=== PATIENT | female | born 1960 | race Hispanic/Latino ===

== ENCOUNTER 2020-12-25 14:50 | Inpatient (IN) | payer OTHER ==
--- OUTSIDE RECORDS SUMMARY | 2020-12-25 14:53 | XMS REPORT | Continuity of Care Document ---
:1960 Author Organization [facility] t Address [address] [place] [address] [address] [place] [address] Care Team Providers Name Role Phone Jamie Amezcua DO Attending Clinician Oneal ANGEL Attending Clinician Problems This patient has no known problems. Allergies, Adverse Reactions, Alerts This patient has no known allergies or adverse reactions. Medications This patient has no known medications. Procedures This patient has no known procedures. Encounters Start End Encounter Admission Attending Care Care Encounter Source Date/Time Date/Time Type Type Clinicians Facility Department ID 2020-11-07 2020-11-07 Patient LATASHA Amezcua [id number] 00:00:00 00:00:00 Outreach [facility] [id number] Jamie [facility] [id number] RONDA [id number] 2020-08-01 2020-08-01 Office LATASHA No [id number] 09:04:12 09:46:11 Visit Wilfrid Ewing [id number] Delia [id number] Magi [id number] [address] Building Results This patient has no known results.
[2020-12-25 18:23] LABS: Urine Blood Negative (Negative); Urine Glucose Negative (Negative); Urine Protein Negative (Negative); Urine Specific Gravity 1.025 (1.005-1.030)
[2020-12-25] MEDS ORDERED: PIPER/TAZO/NS 3.375gm 3.375 GM/100 ML BAG ONE ×2 (18:32→18:36)
[2020-12-25] MEDS ORDERED: MORPHINE 2 MG/ML SYR ONE (18:32)
[2020-12-25] MEDS ORDERED: NA CHLORIDE 0.9% 1,000 ML ONE ×2 (18:32→19:31)
[2020-12-25] MEDS ORDERED: ONDANSETRON 4 MG/2 ML VIAL ONE (18:32)
[2020-12-25] MEDS ORDERED: ACETAMINOPHEN 500 MG TAB ONE (18:32)
--- NOTE | 2020-12-25 19:07 | EDPHYS ---
Physician Documentation [facility] Name: Elli Becker Age: 60 yrs Sex: Female : 1960 Arrival Date: 12/25/2020 Time: 14:51 Bed 8 Private MD: GIUSEPPE Physician Spenser Murillo HPI: 12/25 18:10 This 60 yrs old Female presents to ER via Ambulatory with complaints of bernice Abdominal Pain, High Blood Pressure, Fever. 18:10 The patient has elevated blood pressure and discovered this at home. Onset: The bernice symptoms/episode began/occurred 3 day(s) ago. Modifying factors: The symptoms are aggravated by activity, movement, The symptoms are alleviated by remaining still. Associated signs and symptoms: Pertinent positives: nausea, vomiting, weakness. Severity of symptoms: At its worst the blood pressure was mild, in the emergency department the blood pressure is improved. The patient has experienced similar episodes in the past, a few times. Historical: - Allergies: 15:07 No Known Allergies; ll1 - Home Meds: 18:07 metformin 500 mg Oral tab [Active]; Synthroid 50 mcg Oral tab 1 tab once daily [Active];ld1 - PMHx: 15:07 Diverticulitis; polyps; Diabetes - NIDDM; ll1 15:08 Hypothyroidism; High Cholesterol; ll1 - PSHx: 15:07 Hysterectomy; lump breast removed; Appendectomy; Knee surgery; Cholecystectomy; ll1 - Immunization history:: Client reports receiving the 2nd dose of the Covid vaccine, Flu vaccine is not up to date. - Social history:: Smoking status: Patient denies any tobacco usage or history of. ROS: 18:11 Eyes: Negative for injury, pain, redness, and discharge, ENT: Negative for injury, bernice pain, and discharge, Neck: Negative for injury, pain, and swelling, Cardiovascular: Negative for chest pain, palpitations, and edema, Respiratory: Negative for shortness of breath, cough, wheezing, and pleuritic chest pain, Back: Negative for injury and pain, : Negative for injury, bleeding, discharge, and swelling, MS/Extremity: Negative for injury and deformity, Skin: Negative for injury, rash, and discoloration, Neuro: Negative for headache, weakness, numbness, tingling, and seizure, Psych: Negative for depression, anxiety, suicide ideation, homicidal ideation, and hallucinations, Allergy/Immunology: Negative for hives, rash, and allergies, Endocrine: Negative for neck swelling, polydipsia, polyuria, polyphagia, and marked weight changes, Hematologic/Lymphatic: Negative for swollen nodes, abnormal bleeding, and unusual bruising. 18:11 Constitutional: Positive for fever. 18:11 Abdomen/GI: Positive for abdominal pain, nausea, vomiting, of the suprapubic area, right lower quadrant and left lower quadrant. Exam: 18:11 Constitutional: This is a well developed, well nourished patient who is awake, alert, bernice and in no acute distress. Head/Face: Normocephalic, atraumatic. Eyes: Pupils equal round and reactive to light, extra-ocular motions intact. Lids and lashes normal. Conjunctiva and sclera are non-icteric and not injected. Cornea within normal limits. Periorbital areas with no swelling, redness, or edema. ENT: Nares patent. No nasal discharge, no septal abnormalities noted. Tympanic membranes are normal and external auditory canals are clear. Oropharynx with no redness, swelling, or masses, exudates, or evidence of obstruction, uvula midline. Mucous membranes moist. Neck: Trachea midline, no thyromegaly or masses palpated, and no cervical lymphadenopathy. Supple, full range of motion without nuchal rigidity, or vertebral point tenderness. No Meningismus. Chest/axilla: Normal chest wall appearance and motion. Nontender with no deformity. No lesions are appreciated. Cardiovascular: Regular rate and rhythm with a normal S1 and S2. No gallops, murmurs, or rubs. Normal PMI, no JVD. No pulse deficits. Respiratory: Lungs have equal breath sounds bilaterally, clear to auscultation and percussion. No rales, rhonchi or wheezes noted. No increased work of breathing, no retractions or nasal flaring. Back: No spinal tenderness. No costovertebral tenderness. Full range of motion. Female : Normal external genitalia. Skin: Warm, dry with normal turgor. Normal color with no rashes, no lesions, and no evidence of cellulitis. MS/ Extremity: Pulses equal, no cyanosis. Neurovascular intact. Full, normal range of motion. Neuro: Awake and alert, GCS 15, oriented to person, place, time, and situation. Cranial nerves II-XII grossly intact. Motor strength 5/5 in all extremities. Sensory grossly intact. Cerebellar exam normal. Normal gait. Psych: Awake, alert, with orientation to person, place and time. Behavior, mood, and affect are within normal limits. 18:11 Abdomen/GI: Inspection: distension, Bowel sounds: diminished, Palpation: mild abdominal tenderness, moderate abdominal tenderness, in the suprapubic area, right lower quadrant and left lower quadrant, Liver: no appreciated palpable abnormalities, Hernia: not appreciated. 18:43 ECG was reviewed by the Attending Physician. bernice Vital Signs: 15:02 BP 125 / 75; Pulse 112; Resp 18; Temp 100.6; Pulse Ox 98% ; Weight 93.44 kg; Height 5 ll1 ft. 0 in. (152.40 cm); Pain 10/10; 18:07 BP 128 / 73; Pulse 99; Resp 23; Temp 99.8(O); Pulse Ox 98% on R/A; Pain 10/10; ld1 19:05 BP 120 / 73; Pulse 97; Resp 18; Pulse Ox 96% ; ld1 21:28 BP 96 / 53; Pulse 78; Resp 18; Pulse Ox 97% ; ea 23:29 BP 113 / 56; Pulse 71; Resp 16; Temp 98.7; Pulse Ox 98% ; ea 12/26 00:36 BP 103 / 63; Pulse 75; Resp 18; Pulse Ox 99% ; ea 12/25 15:02 Body Mass Index 40.23 (93.44 kg, 152.40 cm) ll1 MDM: 12/25 17:53 Patient medically screened. bernice 18:13 Differential diagnosis: viral Infection, bacterial infection, pneumonia hypertensive bernice crisis, appendicitis, bowel obstruction, cholecystitis, Cholelithiasis, diverticulitis, gastritis. Data reviewed: vital signs, nurses notes, lab test result(s), EKG, radiologic studies, CT scan, plain films. Data interpreted: senior php developer: not applicable for this patient encounter. rate is 99 beats/min, rhythm is regular, Pulse oximetry: on room air is 98 %. Test interpretation: by ED physician or midlevel provider: ECG, plain radiologic studies. Counseling: I had a detailed discussion with the patient and/or guardian regarding: the historical points, exam findings, and any diagnostic results supporting the discharge/admit diagnosis, lab results, radiology results, the need for further work-up and treatment in the hospital. 12/25 18:10 Order name: Basic Metabolic Panel [facility] 12/25 18:10 Order name: CBC with Diff [facility] 12/25 18:10 Order name: LFT's 12/25 18:10 Order name: Magnesium [facility] 12/25 18:10 Order name: NT PRO-BNP 12/25 18:10 Order name: PT-INR [facility] 12/25 18:10 Order name: Troponin (emerg Dept Use Only); Complete Time: 19:33 [facility] 12/25 18:10 Order name: Lipase; Complete Time: 19:33 [facility] 12/25 18:10 Order name: Urine Culture [facility] 12/25 18:10 Order name: Basic Metabolic Panel; Complete Time: 19:33 [facility] 12/25 18:10 Order name: CBC with Automated Diff; Complete Time: 19:25 [facility] 12/25 18:11 Order name: Liver (Hepatic) Function; Complete Time: 19:33 [facility] 12/25 18:11 Order name: Magnesium; Complete Time: 19:33 [facility] 12/25 18:10 Order name: XRAY Chest (1 view); Complete Time: 20:34 [facility] 12/25 18:10 Order name: EKG; Complete Time: 18:11 [facility] 12/25 18:10 Order name: CT Abd/Pelvis - IV Contrast Only; Complete Time: 20:34 [facility] 12/25 18:11 Order name: NT PRO-BNP; Complete Time: 19:33 [facility] 12/25 18:11 Order name: Protime (+INR); Complete Time: 19:33 [facility] 12/25 18:23 Order name: Urine Dipstick-Ancillary; Complete Time: 19:03 [facility] 12/25 19:49 Order name: SARS-COV-2 RT PCR; Complete Time: 19:51 [facility] 12/25 18:10 Order name: Cardiac monitoring; Complete Time: 18:11 12/25 18:10 Order name: EKG - Nurse/Tech; Complete Time: 18:38 12/25 18:10 Order name: IV Saline Lock; Complete Time: 19:07 [facility] 12/25 18:10 Order name: Labs collected and sent; Complete Time: 19:07 [facility] 12/25 18:10 Order name: O2 Per Protocol; Complete Time: 18:25 [facility] 12/25 18:10 Order name: O2 Sat Monitoring; Complete Time: 18: [facility] 12/25 18:10 Order name: Urine Dipstick-Ancillary (obtain specimen); Complete Time: 18: bernice EC:43 Rate is 101 beats/min. Rhythm is regular. QRS [place] is Normal. [place] interval is normal. bernice QRS interval is normal. QT interval is normal. No Q waves. T waves are Normal. No ST changes noted. Clinical impression: NSR w/ Non-specific ST/T Changes and No evidence of ischemia. Interpreted by me. Reviewed by me. Administered Medications: 18:38 Drug: Tylenol 1000 mg Route: PO; ld1 19:07 Follow up: Response: No adverse reaction ld1 19:06 Drug: Zosyn (piperacillin-tazobactam) 3.375 grams Route: IVPB; Infused Over: 60 mins; ld1 Site: left antecubital; 20:10 Follow up: IV Status: Completed infusion ea 19:06 Drug: morphine 2 mg Route: IVP; Site: left forearm; ld1 19:25 Follow up: Response: No adverse reaction ea 19:06 Drug: Zofran (Ondansetron) 4 mg Route: IVP; Site: left forearm; ld1 19:25 Follow up: Response: No adverse reaction ea 19:06 Drug: NS 0.9% 1000 ml Route: IV; Rate: 1 bolus; Site: left forearm; ld1 22:00 Follow up: Response: No adverse reaction; IV Status: Completed infusion; IV Intake: ea 1000ml 19:16 Drug: NS 0.9% 1000 ml Route: IV; Rate: 125 ml/hr; Site: left antecubital; ea 23:28 Follow up: Response: No adverse reaction; IV Status: Completed infusion ea 19:50 Not Given (Duplicate Order): LanTUS (insulin glargine) 35 units Sub-Q once bernice 20:45 Drug: fentaNYL (PF) 25 mcg Route: IVP; Site: right antecubital; ea 22:00 Follow up: Response: No adverse reaction; Pain is decreased ea 23:28 Drug: fentaNYL (PF) 25 mcg Route: IVP; Site: left antecubital; ea Disposition: 12/25/20 19:07 Hospitalization ordered by Kane Ortiz for Inpatient Admission. Preliminary diagnosis are Abdominal tenderness, Fever, unspecified, Diverticular disease of intestine, Type 2 diabetes mellitus. - Bed requested for Telemetry/MedSurg (Inpatient). - Status is Inpatient Admission. rv - Condition is Stable. - Problem is new. - Symptoms have improved. Signatures: Dispatcher [employer] [facility] Vita Real RN RN dw Anderson, Corey, MD MD cha Attema, Dexter, STUDENT TRUCK DRIVER-C STUDENT TRUCK DRIVER-Cla1 Spenser Chu PA PA cp Neetu Booker RN RN ea Vicente, Ronaldo, RN RN rv Lewis, Lynsay, RN RN ll1 Narcisa Fortune RN RN ld1 Corrections: (The following items were deleted from the chart) 19:06 18:11 CORONAVIRUS+MR.LAB.BRZ ordered. [facility] 21:20 19:07 Hospitalization Ordered by Gagandeep Khan DO for Inpatient Admission. Preliminary cp diagnosis is Abdominal tenderness; Fever, unspecified; Diverticular disease of intestine; Type 2 diabetes mellitus. Bed requested for Telemetry/MedSurg (Inpatient). Status is Inpatient Admission. Condition is Stable. Problem is new. Symptoms have improved. [facility] 21:37 21:20 12/25/2020 19:07 Hospitalization Ordered by Kane Ortiz MD for Inpatient dw Admission. Preliminary diagnosis is Abdominal tenderness; Fever, unspecified; Diverticular disease of intestine; Type 2 diabetes mellitus. Bed requested for Telemetry/MedSurg (Inpatient). Status is Inpatient Admission. Condition is Stable. Problem is new. Symptoms have improved. cp 23:22 21:37 12/25/2020 19:07 Hospitalization Ordered by Kane Ortiz MD for Inpatient dw Admission. Preliminary diagnosis is Abdominal tenderness; Fever, unspecified; Diverticular disease of intestine; Type 2 diabetes mellitus. Bed requested for [facility] ER HOLD. Status is Inpatient Admission. Condition is Stable. Problem is new. Symptoms have improved. dw 12/26 00:35 12/25 23:22 12/25/2020 19:07 Hospitalization Ordered by Kane Ortiz MD for Inpatient rv Admission. Preliminary diagnosis is Abdominal tenderness; Fever, unspecified; Diverticular disease of intestine; Type 2 diabetes mellitus. Bed requested for Telemetry/MedSurg (Inpatient). Status is Inpatient Admission. Condition is Stable. Problem is new. Symptoms have improved. dw
--- NOTE | 2020-12-25 19:07 | ER ---
Nurse's Notes [facility] Name: Elli Becker Age: 60 yrs Sex: Female : 1960 Arrival Date: 12/25/2020 Time: 14:51 Bed 8 Private MD: Diagnosis: Abdominal tenderness;Fever, unspecified;Diverticular disease of intestine;Type 2 diabetes mellitus Presentation: 12/25 15:02 Chief complaint: Patient states: Sever abd pain with N/V/D since Friday, got worse over ll1 time. Went to see Dr. Yu, sent here for eval. BP and HR was elevated. Coronavirus screen: Client denies travel out of the [place] in the last 14 days. chills, diarrhea, fatigue, headache, nausea, shaking with chills, vomiting. Client presents with at least one sign or symptom that may indicate coronavirus-19. Standard/surgical mask placed on the client. Ebola Screen: Patient denies travel to an Ebola-affected area in the 21 days before illness onset. Initial Sepsis Screen: Does the patient meet any 2 criteria? No. Patient's initial sepsis screen is negative. Does the patient have a suspected source of infection? Yes: Acute abdominal pain. Risk Assessment: Do you want to hurt yourself or someone else? Patient reports no desire to harm self or others. Onset of symptoms was December 22, 2020. 15:02 Method Of Arrival: Ambulatory ll1 15:02 Acuity: BRIGIDO 3 ll1 Historical: - Allergies: 15:07 No Known Allergies; ll1 - Home Meds: 18:07 metformin 500 mg Oral tab [Active]; Synthroid 50 mcg Oral tab 1 tab once daily [Active];ld1 - PMHx: 15:07 Diverticulitis; polyps; Diabetes - NIDDM; ll1 15:08 Hypothyroidism; High Cholesterol; ll1 - PSHx: 15:07 Hysterectomy; lump breast removed; Appendectomy; Knee surgery; Cholecystectomy; ll1 - Immunization history:: Client reports receiving the 2nd dose of the Covid vaccine, Flu vaccine is not up to date. - Social history:: Smoking status: Patient denies any tobacco usage or history of. Screenin:07 Abuse screen: Denies threats or abuse. Denies injuries from another. Nutritional ld1 screening: No deficits noted. Tuberculosis screening: No symptoms or risk factors identified. Fall Risk IV access (20 points). Assessment: 18:04 General: Appears in no apparent distress. uncomfortable, Behavior is calm, cooperative, ld1 appropriate for age. Pain: Complains of pain in right lower quadrant and left lower quadrant Pain currently is 10 out of 10 on a pain scale. Quality of pain is described as burning, sharp, throbbing, Pain began 2-3 days ago. Is continuous, Aggravated by increased activity, repositioning. Neuro: Level of Consciousness is awake, alert, obeys commands, Oriented to person, place, time, situation, Appropriate for age. Cardiovascular: Capillary refill < 3 seconds Patient's skin is warm and dry. Rhythm is regular. Respiratory: Airway is patent Respiratory effort is even, unlabored, Respiratory pattern is regular, symmetrical. GI: Bowel sounds present X 4 quads. Abd is soft Abdomen is tender to palpation in right lower quadrant and left lower quadrant Guarding noted in right lower quadrant and left lower quadrant Reports lower abdominal pain, diarrhea, nausea. : No deficits noted. EENT: No deficits noted. Derm: No deficits noted. Musculoskeletal: No deficits noted. 19:24 General: Appears uncomfortable, Behavior is appropriate for age. Pain: Complains of ea pain in headache. Neuro: Level of Consciousness is awake, alert, obeys commands, Oriented to person, place, time, situation. Cardiovascular: Patient's skin is warm and dry. Respiratory: Airway is patent Respiratory effort is even, unlabored, Respiratory pattern is regular, symmetrical. Derm: Skin is pink, warm \T\ dry. 21:15 Reassessment: Patient and/or family updated on plan of care and expected duration. Pain ea level reassessed. Patient is alert, oriented x 3, equal unlabored respirations, skin warm/dry/pink. provider at bedside updating pt on plan of care. 12/26 00:35 Reassessment: Patient and/or family updated on plan of care and expected duration. Pain ea level reassessed. Patient is alert, oriented x 3, equal unlabored respirations, skin warm/dry/pink. Report called to receiving nurse on fourth floor. Pt left ED via stretcher per nurse. Pt tolerating well. Vital Signs: 12/25 15:02 BP 125 / 75; Pulse 112; Resp 18; Temp 100.6; Pulse Ox 98% ; Weight 93.44 kg; Height 5 ll1 ft. 0 in. (152.40 cm); Pain 10/10; 18:07 BP 128 / 73; Pulse 99; Resp 23; Temp 99.8(O); Pulse Ox 98% on R/A; Pain 10/10; ld1 19:05 BP 120 / 73; Pulse 97; Resp 18; Pulse Ox 96% ; ld1 21:28 BP 96 / 53; Pulse 78; Resp 18; Pulse Ox 97% ; ea 23:29 BP 113 / 56; Pulse 71; Resp 16; Temp 98.7; Pulse Ox 98% ; ea 12/26 00:36 BP 103 / 63; Pulse 75; Resp 18; Pulse Ox 99% ; ea 12/25 15:02 Body Mass Index 40.23 (93.44 kg, 152.40 cm) ll1 ED Course: 12/25 14:51 Patient arrived in ED. as 15:06 Triage completed. ll1 17:53 Spenser Murillo MD is Attending Physician. [facility] 17:54 Narcisa Fortune RN is Primary Nurse. ld1 18:07 Patient has correct armband on for positive identification. Placed in gown. Bed in low ld1 position. Call light in reach. Side rails up X2. color television console monitor on. Pulse ox on. NIBP on. Door closed. Noise minimized. Warm blanket given. 18:07 No provider procedures requiring assistance completed. ld1 18:37 Missed attempt(s): 22 gauge in right forearm. ld1 18:53 Missed attempt(s): 20 gauge in left antecubital area. [facility] 19:00 Arm band placed on right wrist. ea 19:04 Initial lab(s) drawn, by ri, sent to lab. Inserted saline lock: 22 gauge in left ld1 forearm, using aseptic technique. Blood collected. 19:06 Gagandeep Khan DO is Hospitalizing Provider. bernice 19:53 XRAY Chest (1 view) In Process Unspecified. EDMS 20:06 CT Abd/Pelvis - IV Contrast Only In Process Unspecified. EDMS 21:20 Kane Ortiz MD is Hospitalizing Provider. cp 23:29 Patient admitted, IV remains in place. ea Administered Medications: 18:38 Drug: Tylenol 1000 mg Route: PO; ld1 19:07 Follow up: Response: No adverse reaction ld1 19:06 Drug: Zosyn (piperacillin-tazobactam) 3.375 grams Route: IVPB; Infused Over: 60 mins; ld1 Site: left antecubital; 20:10 Follow up: IV Status: Completed infusion ea 19:06 Drug: morphine 2 mg Route: IVP; Site: left forearm; ld1 19:25 Follow up: Response: No adverse reaction ea 19:06 Drug: Zofran (Ondansetron) 4 mg Route: IVP; Site: left forearm; ld1 19:25 Follow up: Response: No adverse reaction ea 19:06 Drug: NS 0.9% 1000 ml Route: IV; Rate: 1 bolus; Site: left forearm; ld1 22:00 Follow up: Response: No adverse reaction; IV Status: Completed infusion; IV Intake: ea 1000ml 19:16 Drug: NS 0.9% 1000 ml Route: IV; Rate: 125 ml/hr; Site: left antecubital; ea 23:28 Follow up: Response: No adverse reaction; IV Status: Completed infusion ea 19:50 Not Given (Duplicate Order): LanTUS (insulin glargine) 35 units Sub-Q once bernice 20:45 Drug: fentaNYL (PF) 25 mcg Route: IVP; Site: right antecubital; ea 22:00 Follow up: Response: No adverse reaction; Pain is decreased ea 23:28 Drug: fentaNYL (PF) 25 mcg Route: IVP; Site: left antecubital; ea Intake: 22:00 IV: 1000ml; Total: 1000ml. ea Outcome: 19:07 Decision to Hospitalize by Provider. bernice 21:29 Instructed on the need for admit, Demonstrated understanding of instructions. ea 12/26 00:34 Admitted to Tele accompanied by nurse, via stretcher, room 403, Other SBAR Report rv called to STEPHANIE CONTRERAS Condition: good 00:34 Condition: stable ea 00:35 Patient left the ED. rv Signatures: Dispatcher [employer] EDMS Spenser Murillo MD MD cha Martinez, Amelia as Page, Corey, PA PA cp Martinez, Maria [facility] Neetu Booker RN RN ea Vicente, Ronaldo, RN RN rv Renay Joseph RN RN [facility] Narcisa Fortune RN RN ld1
[2020-12-25 19:19] LABS: Absolute Lymphocytes (CBC) 1.1 K/uL (0.7-4.9); Basophils % 0.4 % (0-1.3); Hematocrit 42.5 % (36.0-45.0); Lymphocytes % 14.5 % (15.3-44.8); MPV 10.3 fL (7.6-11.3); RBC Red Blood Cell Count 4.56 M/uL (3.86-4.86)
[2020-12-25 19:20] LABS: Protime INR 1.09
[2020-12-25 19:29] LABS: ALT/SGPT 70 U/L (12-78); AST/SGOT 63 U/L (15-37); Albumin 3.5 g/dL (3.4-5.0); Alkaline Phosphatase 78 U/L (45-117); BUN Blood Urea Nitrogen 17 mg/dL (7-18); Bicarbonate 23 mmol/L (21-32); Bilirubin Direct 0.1 mg/dL (0-0.2); Bilirubin Total 0.4 mg/dL (0.2-1.0); Glucose Level 108 mg/dL (74-106); Lipase 57 U/L (73-393); NT PRO-BNP 70 pg/mL (<125); Potassium 3.7 mmol/L (3.5-5.1); Sodium Level 140 mmol/L (136-145); Troponin (Emerg Dept Use Only) < 0.02 ng/mL (0.0-0.045)
[2020-12-25] MEDS ORDERED: INSULIN GLARGINE 100 UNITS/ML SQ ONE (20:02)
--- NOTE | 2020-12-25 20:17 | RAD REPORT ---
EXAM DESCRIPTION: Hernan Single View12/25/2020 7:53 pm CLINICAL HISTORY: Abdominal pain COMPARISON: 2007 FINDINGS: The lungs appear clear of acute infiltrate. The heart is normal size IMPRESSION: No acute abnormalities displayed
--- NOTE | 2020-12-25 20:17 | RAD REPORT ---
EXAM DESCRIPTION: CT - Abdomen Pelvis W Contrast - 12/25/2020 8:06 pm CLINICAL HISTORY: Abdominal pain COMPARISON: 2018 TECHNIQUE: Computed axial tomography of the abdomen pelvis was obtained. 100 cc Isovue-300 was admin istered intravenously. Oral contrast was not requested which limits evaluation of bowel. All CT scans are performed using dose optimization technique as appropriate and may include automated exposure control or mA/KV adjustment according to patient size. FINDINGS: Fatty liver. Cholecystectomy The Spleen, pancreas, adrenal and kidneys appear unremarkable. Mild to moderate stranding adjacent to the sigmoid colon. Colonic diverticulosis. No free air. No abs cess A small umbilical hernia IMPRESSION: Mild to moderate sigmoid diverticulitis
[2020-12-25] MEDS ORDERED: FENTANYL CITR 100 MCG/2 ML ONE (20:59)
[2020-12-25 22:33] VITALS: BMI 40.2
[2020-12-26] MEDS: INSULIN -REGULAR HUMAN 50 UNIT/0.5 ML ML SQ SCH ×5 (01:34→20:46)
[2020-12-26] MEDS ORDERED: ONDANSETRON 4 MG/2 ML VIAL IV PRN ×2 (01:34→20:06)
--- NOTE | 2020-12-26 01:54 | P.HP ---
Certification for Inpatient Patient admitted to: Observation With expected LOS: <2 Midnights Patient will require the following post-hospital care: None Practitioner: I am a practitioner with admitting privileges, knowledge of patient current condition, hospital course, and medical plan of care. Services: Services provided to patient in accordance with Admission requirements found in Title 42 Section 412.3 of the Code of Federal Regulations Patient History Date of Service: 12/26/20 Reason for admission: Diverticulitis History of Present Illness: 60-year-old female with history of diverticulitis, diabetes mellitus type 2, hypothyroid, hyperlipidemia presents the emergency department for abdominal pain. Patient reports abdominal pain began on Friday had been increasing in intensity. Patient evaluated in emergency room labs demonstrate white blood cell count 7.[address] demonstrates mild to moderate sigmoid diverticulitis. Patient with significant pain refractory to multiple doses of IV opioids. ED provider wishes to admit for further evaluation and management. No evidence of abscess or perforation on CT. Allergies No Known Allergies Allergy (Unverified 12/26/20 00:59) - Past Medical/Surgical History Has patient received pneumonia vaccine in the past: No Diabetic: Yes -: diverticulitis -: Diabetes -: hypothyroidism -: high cholesterol -: hysterectomy -: appendectomy -: cholecystectomy -: knee surgery Psychosocial/ Personal History: Lives with her . - Family History Mother -: Heart disease Father -: Heart disease Brother -: Heart disease - Social History Smoking Status: Never smoker Alcohol use: No CD- Drugs: No Place of Residence: Home Review of Systems 10-point ROS is otherwise unremarkable Gastrointestinal: Abdominal Pain Physical Examination - Vital Signs Temperature: 96.9 F Blood Pressure: 128/60 Pulse: 75 Respirations: 17 Pulse Ox (%): 99 - Physical Exam General: Alert, In no apparent distress HEENT: Atraumatic, PERRLA, Mucous membr. moist/pink Neck: Supple, 2+ carotid pulse no bruit, No LAD Respiratory: Clear to auscultation bilaterally, Normal air movement Cardiovascular: Regular rate/rhythm, Normal S1 S2 Gastrointestinal: Normal bowel sounds, No rebound, No guarding, Tenderness (Suprapubic and left lower quadrant abdominal tenderness noted) Musculoskeletal: No tenderness Integumentary: No rashes Neurological: Normal speech, Normal strength at 5/5 x4 extr, Normal tone, Normal affect - Studies Laboratory Data (last 24 hrs) 12/25/20 18:43: PT 12.5, INR 1.09 12/25/20 18:43: WBC 7.90, Hgb 14.2, Hct 42.5, Plt Count 308 12/25/20 18:43: Sodium 140, Potassium 3.7, BUN 17, Creatinine 0.78, Glucose 108 H, Magnesium 2.0, Total Bilirubin 0.4, AST 63 H, ALT 70, Alkaline Phosphatase 78, Lipase 57 L Assessment and Plan - Plan Assessment Acute sigmoid diverticulitis Diabetes mellitus type 2 Hypothyroidism Hyperlipidemia Plan Acute sigmoid diverticulitis: Continue with IV Cipro/Flagyl, NPO aside from sips of clear liquids and ice chips at this time. Daily labs. P.r.n. pain medicines and anti emetics. Advance diet as tolerated. DVT prophylaxis Lovenox 40 mg subcutaneous once daily. Diabetes mellitus type 2: A.c. HS Accu-Cheks insulin therapy. Hypothyroidism: Thyroid panel with morning labs, continue home medicine. Hyperlipidemia: Obtain and continue home meds. Discharge Plan: Home Plan to discharge in: 24 Hours - Advance Directives Does patient have a Living Will: No Does patient have a Durable POA for Healthcare: No - Code Status/Comfort Care Code Status Assessed: Yes (Full code) Critical Care: No Time Spent Managing Pts Care (In Minutes): 55
[2020-12-26] MEDS ORDERED: CIPROFLOXACIN 400mg IV 400 MG/200 ML BAG IV ONE (02:00)
[2020-12-26] MEDS ORDERED: METRONIDAZOLE 500mg IVPB 500 MG/100 ML BAG IV ONE (02:00)
[2020-12-26] MEDS: NA CHLORIDE 0.9% 1,000 ML IV SCH ×2 (02:16→11:34)
[2020-12-26 03:58] LABS: Absolute Lymphocytes (CBC) 1.2 K/uL (0.7-4.9); Basophils % 0.3 % (0-1.3); Hematocrit 35.9 % (36.0-45.0); Lymphocytes % 25.9 % (15.3-44.8); MPV 9.8 fL (7.6-11.3); RBC Red Blood Cell Count 3.84 M/uL (3.86-4.86)
[2020-12-26 04:57] LABS: ALT/SGPT 45 U/L (12-78); AST/SGOT 38 U/L (15-37); Albumin 2.7 g/dL (3.4-5.0); Alkaline Phosphatase 57 U/L (45-117); BUN Blood Urea Nitrogen 14 mg/dL (7-18); Bicarbonate 24 mmol/L (21-32); Bilirubin Total 0.3 mg/dL (0.2-1.0); Glucose Level 103 mg/dL (74-106); Magnesium 1.9 mg/dL (1.8-2.4); Potassium 3.4 mmol/L (3.5-5.1); Sodium Level 143 mmol/L (136-145)
[2020-12-26] MEDS: MORPHINE 2 MG/ML SYR IV PRN ×3 (06:32→20:37)
[2020-12-26] MEDS: ACETAMINOPHEN 500 MG TAB PO PRN ×2 (08:02→23:07)
[2020-12-26] MEDS: KCL 20 MEQ/100 mL IVPB 20 MEQ/100 ML BAG IV SCH ×2 (08:03→18:32)
[2020-12-26] MEDS: CIPROFLOXACIN 400mg IV 400 MG/200 ML BAG IV SCH ×2 (08:03→20:34)
[2020-12-26] MEDS: METRONIDAZOLE 500mg IVPB 500 MG/100 ML BAG IV SCH ×2 (08:04→16:55)
[2020-12-26] MEDS: ENOXAPARIN 40 MG/0.4 ML SQ SCH (08:04)
--- NOTE | 2020-12-26 11:14 | EKG ---
Test Date: 2020-12-25 Test Time: 18:32:42 Prosthodontist: GUANAKITO MEASUREMENT RESULTS: Intervals: Rate: 101 MS: 132 QRSD: 78 QT: 356 QTc: 461 [place]: P: 46 MS: 132 QRS: -23 T: 42 INTERPRETIVE STATEMENTS: Sinus tachycardia Low voltage QRS Cannot rule out Anterior infarct, age undetermined Abnormal ECG Compared to ECG 07/23/2008 12:21:56 Myocardial infarct finding now present Sinus rhythm no longer present Electronically Signed On 12-26-20 11:13:23 CDT by Chacorta Long
--- NOTE | 2020-12-26 16:38 | P.PN ---
Subjective Date of Service: 12/26/20 Chief Complaint: Diverticulitis Subjective: No new changes (no nausea/vomiting. continues with abdominal discomfort, had small diarrhea overnight no other complaints) Review of Systems 10-point ROS is otherwise unremarkable Physical Examination - Vital Signs Temperature: 97.7 F Blood Pressure: 105/58 Pulse: 70 Respirations: 18 Pulse Ox (%): 97 - Studies Laboratory Data (last 24 hrs) 12/26/20 03:33: Sodium 143, Potassium 3.4 L, BUN 14, Creatinine 0.53 L, Glucose 103, Magnesium 1.9, Total Bilirubin 0.3, AST 38 H, ALT 45, Alkaline Phosphatase 57 12/26/20 03:33: WBC 4.80 D, Hgb 12.0, Hct 35.9 L D, Plt Count 241 D 12/25/20 18:43: PT 12.5, INR 1.09 12/25/20 18:43: WBC 7.90, Hgb 14.2, Hct 42.5, Plt Count 308 12/25/20 18:43: Sodium 140, Potassium 3.7, BUN 17, Creatinine 0.78, Glucose 108 H, Magnesium 2.0, Total Bilirubin 0.4, AST 63 H, ALT 70, Alkaline Phosphatase 78, Lipase 57 L Assessment & Plan Physician Review Additional Text: Physical Exam General: Alert, In no apparent distress HEENT: normal conjunctiva, sclera anicteric Respiratory: Clear to auscultation bilaterally, Normal air movement Cardiovascular: Regular rate/rhythm, Normal S1 S2 Gastrointestinal: soft, mild suprapubic and LLQ abdominal tenderness, no rebound Musculoskeletal: No tenderness Integumentary: No rashes Neurological: Normal speech, Normal strength at 5/5 x4 extr, Normal affect Problem List Acute sigmoid diverticulitis Diabetes mellitus type 2 Hypothyroidism Hyperlipidemia -continue iv cipro/flagyl, NPO except sips/ice chips -serial abdominal exams -advance diet once pain has improved -continue sliding scale insulin -continue home medications -zofran PRN VTE: lovenox Dispo: anticipate dc home in ~48hrs Time Spent Managing Pts Care (In Minutes): 35
[2020-12-26] MEDS: D5 0.45 NS 1,000 ML IV SCH (20:35)
[2020-12-27] MEDS: METRONIDAZOLE 500mg IVPB 500 MG/100 ML BAG IV SCH ×3 (01:17→16:29)
[2020-12-27 04:13] LABS: Absolute Lymphocytes (CBC) 1.9 K/uL (0.7-4.9); Basophils % 0.3 % (0-1.3); Hematocrit 35.5 % (36.0-45.0); Lymphocytes % 31.5 % (15.3-44.8); MPV 9.8 fL (7.6-11.3); RBC Red Blood Cell Count 3.82 M/uL (3.86-4.86)
[2020-12-27 04:23] LABS: ALT/SGPT 38 U/L (12-78); AST/SGOT 28 U/L (15-37); Albumin 2.8 g/dL (3.4-5.0); Alkaline Phosphatase 61 U/L (45-117); BUN Blood Urea Nitrogen 8 mg/dL (7-18); Bicarbonate 25 mmol/L (21-32); Bilirubin Total 0.2 mg/dL (0.2-1.0); Glucose Level 106 mg/dL (74-106); Potassium 3.5 mmol/L (3.5-5.1); Protein, Total 6.1 g/dL (6.4-8.2); Sodium Level 142 mmol/L (136-145)
[2020-12-27] MEDS: LEVOTHYROXINE SOD 0.125 MG TAB PO SCH (05:34)
[2020-12-27] MEDS: D5 0.45 NS 1,000 ML IV SCH (07:00)
[2020-12-27] MEDS: INSULIN -REGULAR HUMAN 50 UNIT/0.5 ML ML SQ SCH ×4 (07:30→21:00)
[2020-12-27] MEDS: CIPROFLOXACIN 400mg IV 400 MG/200 ML BAG IV SCH ×2 (08:04→21:07)
[2020-12-27] MEDS: ENOXAPARIN 40 MG/0.4 ML SQ SCH (08:05)
[2020-12-27] MEDS ORDERED: D5 0.45 NS 1,000 ML IV SCH (09:31)
[2020-12-27] MEDS ORDERED: POTASSIUM 25 MEQ EFFERV TAB PO ONE (17:00)
--- NOTE | 2020-12-27 21:03 | P.PN ---
Subjective Date of Service: 12/27/20 Chief Complaint: Diverticulitis Subjective: Improving (mild pain, no nausea, reports BM yesterday, +gas. food not worsening her pain/discomfort) Review of Systems 10-point ROS is otherwise unremarkable Physical Examination - Vital Signs Temperature: 97.3 F Blood Pressure: 102/49 Pulse: 66 Respirations: 18 Pulse Ox (%): 96 Assessment & Plan Physician Review Additional Text: Physical Exam General: Alert, In no apparent distress HEENT: normal conjunctiva, sclera anicteric Respiratory: Clear to auscultation bilaterally, Normal air movement Cardiovascular: Regular rate/rhythm, Normal S1 S2 Gastrointestinal: soft, mild suprapubic and LLQ abdominal tenderness (improved) Musculoskeletal: No tenderness Integumentary: No rashes Problem List Acute sigmoid diverticulitis Diabetes mellitus type 2, non-insulin dependent Hypothyroidism Hyperlipidemia -continue iv cipro/flagyl -advance diet to CLD, possible full liquids later -serial abdominal exams -continue sliding scale insulin -continue home medications -zofran PRN -possible soft diet tomorrow VTE: lovenox Dispo: anticipate dc home in ~24hrs if tolerating diet and pain improved Time Spent Managing Pts Care (In Minutes): 35
[2020-12-27 22:25] VITALS: O2SAT 96
[2020-12-28] MEDS: METRONIDAZOLE 500mg IVPB 500 MG/100 ML BAG IV SCH ×2 (01:02→08:54)
[2020-12-28 04:04] LABS: BUN Blood Urea Nitrogen 9 mg/dL (7-18); Bicarbonate 25 mmol/L (21-32); Glucose Level 102 mg/dL (74-106); Potassium 3.9 mmol/L (3.5-5.1); Sodium Level 143 mmol/L (136-145)
[2020-12-28] MEDS: LEVOTHYROXINE SOD 0.125 MG TAB PO SCH (06:17)
[2020-12-28] MEDS: INSULIN -REGULAR HUMAN 50 UNIT/0.5 ML ML SQ SCH ×2 (07:30→11:30)
[2020-12-28] MEDS ORDERED: POTASSIUM 25 MEQ EFFERV TAB PO ONE (08:00)
[2020-12-28] MEDS: CIPROFLOXACIN 400mg IV 400 MG/200 ML BAG IV SCH (08:54)
[2020-12-28] MEDS: ENOXAPARIN 40 MG/0.4 ML SQ SCH (08:54)
[2020-12-28 12:07] VITALS: BP 91/48; TEMP 97
--- NOTE | 2020-12-28 20:58 | P.DS ---
Admission Date: 12/25/20 Discharge Date: 12/28/20 Disposition: ROUTINE DISCHARGE Discharge Condition: GOOD Reason for Admission: Diverticulitis Procedures: CXR (12/25): lungs appear clear of acute infiltrate. The heart is normal size CT Abd/pelvis (12/25): Fatty liver. Cholecystectomy. The Spleen, pancreas, adrenal and kidneys appear unremarkable. Mild to moderate stranding adjacent to the sigmoid colon. Colonic diverticulosis. No free air. No abscess. A small umbilical hernia Problem List Acute sigmoid diverticulitis Diabetes mellitus type 2, non-insulin dependent Hypothyroidism Hyperlipidemia Brief History of Present Illness: 60-year-old female with history of diverticulitis, diabetes mellitus type 2, hypothyroid, hyperlipidemia presents the emergency department for abdominal pain. Patient reports abdominal pain began on Friday had been increasing in intensity. Patient evaluated in emergency room labs demonstrate white blood cell count 7.[address] demonstrates mild to moderate sigmoid diverticulitis. Patient with significant pain refractory to multiple doses of IV opioids. ED provider wishes to admit for further evaluation and management. No evidence of abscess or perforation on CT. Hospital Course: Patient was treated with IV cipro, flagyl, and bowel rest. She had improvement of her abdominal pain and nausea. She was slowly advanced and on day of discharge she was tolerating a GI soft diet with minimal abdominal discomfort and no nausea/vomiting. Discharged with 10 days of cipro and flagyl. Advised to follow up with PCP in 3-5 days. Vital Signs/Physical Exam: Physical Exam General: Alert, In no apparent distress HEENT: normal conjunctiva, sclera anicteric Respiratory: Clear to auscultation bilaterally, Normal air movement Cardiovascular: Regular rate/rhythm, Normal S1 S2 Gastrointestinal: soft, nontender, nondistended Musculoskeletal: No tenderness Integumentary: No rashes Temp Pulse Resp BP Pulse Ox 97 F 77 16 91/48 L 97 12/28/20 12:00 12/28/20 12:00 12/28/20 12:00 12/28/20 12:00 12/28/20 12:00 Laboratory Data at Discharge: WBC 6.00 K/uL (4.3-10.9) D 12/27/20 03:37 Hgb 12.0 g/dL (12.0-15.0) 12/27/20 03:37 Hct 35.5 % (36.0-45.0) L 12/27/20 03:37 Plt Count 254 K/uL (152-406) 12/27/20 03:37 PT 12.5 SECONDS (9.5-12.5) 12/25/20 18:43 INR 1.09 12/25/20 18:43 Sodium 143 mmol/L (136-145) 12/28/20 03:17 Potassium 3.9 mmol/L (3.5-5.1) 12/28/20 03:17 BUN 9 mg/dL (7-18) 12/28/20 03:17 Creatinine 0.64 mg/dL (0.55-1.3) 12/28/20 03:17 Glucose 102 mg/dL (74-106) 12/28/20 03:17 Magnesium 2.0 mg/dL (1.8-2.4) 12/27/20 03:37 Total Bilirubin 0.2 mg/dL (0.2-1.0) 12/27/20 03:37 AST 28 U/L (15-37) 12/27/20 03:37 ALT 38 U/L (12-78) 12/27/20 03:37 Alkaline Phosphatase 61 U/L (45-117) 12/27/20 03:37 Lipase 57 U/L (73-393) L 12/25/20 18:43 Home Medications: Atorvastatin Calcium [Lipitor*] 10 mg PO BEDTIME 12/26/20 Fenofibrate [Tricor*] 145 mg PO DAILY 12/26/20 Levothyroxine Sodium [Synthroid] 125 mcg PO DAILY 12/26/20 Metformin HCl [Glucophage*] 500 mg PO BID 12/26/20 Ciprofloxacin HCl [Cipro 500 MG Tablet] 500 mg PO BID 10 Days #20 tab 12/28/20 metroNIDAZOLE [Flagyl] 500 mg PO Q8H 10 Days #30 tablet 12/28/20 New Medications: Ciprofloxacin HCl [Cipro 500 MG Tablet] 500 mg PO BID 10 Days #20 tab metroNIDAZOLE [Flagyl] 500 mg PO Q8H 10 Days #30 tablet Physician Discharge Instructions: You were found to have diverticulitis. You improved with bowel rest and IV Antibiotics. You are discharged with 10 more days of antibiotics. Please follow up with your PCP in 3-5 days. Continue with a bland / soft diet for the next ~5 days. Diet: [place] Activity: Ad guillermo Followup: Suresh Rhoades PA [Primary Care Provider] - (call to schedule appointment) Time spent managing pt's care (in minutes): 35
== END 2020-12-28 12:41 | disposition home or self-care (01) | DRG 392 ==
LOC: ER 14:50 → ERHOLD 20:42 → 4TH 23:55 → OBSVTOIN 12-26 14:30
PROVIDERS: ADMIT Hospitalist; ATTEND Hospitalist
DX: K57.32 Diverticulitis of large intestine without perforation or abscess without bleeding (principal); E03.9 Hypothyroidism, unspecified; E78.5 Hyperlipidemia, unspecified; E11.9 Type 2 diabetes mellitus without complications; Z79.899 Other long term (current) drug therapy; Z79.890 Hormone replacement therapy; Z90.710 Acquired absence of both cervix and uterus; Z90.49 Acquired absence of other specified parts of digestive tract; Z20.822 Contact with and (suspected) exposure to COVID-19
CPT/HCPCS: 36415; 71045; 74177; 80048; 80053; 80076; 81003; 82947; 83036; 83690; 83735; 83880; 84132; 84439; 84443; 84484; 85025; 85610; 87086; 87088; 93005; 99285; G0378; J0744; J1650; J1815; J2270; J2405; J2543; J3010; J3480; J7030; J7799; Q9967; U0003

== ENCOUNTER 2021-08-20 12:56 | Observation (INO) | payer OTHER ==
--- OUTSIDE RECORDS SUMMARY | 2021-08-20 15:06 | XMS REPORT | Continuity of Care Document ---
:1960 Author Organization [facility] t Address [address] [place] [address] [address] [place] [address] Care Team Providers Name Role Phone NO Attending Clinician Unavailable Jamie Amezcua DO Attending Clinician Doctor Unassigned, Name Attending Clinician Unavailable Cedric ANGEL Attending Clinician Lab, Fam Pob I Attending Clinician Unavailable Johan SWANP Attending Clinician 2, Lab Attending Clinician Unavailable [place] ANGEL, H Attending Clinician Payers Payer Name Policy Type Policy Number Effective Date Expiration Date Navneet URIBE CHOICE POS [id number] 2019 00:00:00 II Problems Condition Condition Condition Status Onset Resolution Last Treating Co mments Source Name Details Category Date Date Treatment Clinician Date Prediabete Prediabete Disease Active U nivers s s 05-01 ity of 00:00: [place] [address] Medical Branch Metabolic Metabolic Disease Active Uni vers syndrome X syndrome X 05-01 it y of 00:: [place] [facility] Obesity Obesity Disease Active Univers (BMI (BMI 05-01 ity of 30-39.9) 30-39.9) 00:00: [place] [facility] Dyslipidem Dyslipidem Disease Active U wally ia ia 8 ity of 00:00: [place] [facility] Acanthosis Acanthosis Disease Active U wally nigricans nigricans 5-04 ity of 00:00: [place] [address] Medical Branch Postablati Postablati Disease Active U nivers ve ve 5-04 ity of hypothyro[place]othyro[place] dis[place] 00 [facility] [place] Allergies, Adverse Reactions, Alerts Allergy Allergy Status Severity Reaction(s) Onset Inactive Treating Comm ents Source Name Type Date Date Clinician NO KNOWN Drug Active Univers ALLERGIE Class ity of S [facility] Social History Social Habit Start Date Stop Date Quantity Comments Source Exposure to Not sure [facility] SARS-CoV-2 [facility] (event) [place] Tobacco use and 2020-08-01 2020-08-01 Never used Universit y of exposure 00:00:00 00:00:00 [facility] Alcohol intake 2020-08-01 2020-08-01 Current drinker of Un iversity of 00:00:00 00:00:00 alcohol (finding) [facility] edical [place] Alcohol Comment 2019-01-05 2019-01-05 Occasional Universit y of 00:00:00 00:00:00 [facility] Sex [birth year] Universit y of 00:00:00 00:00:00 [facility] Smoking Status Start Date Stop Date Source Former smoker 2020-08-01 00:00:00 2020-08-01 00:00:00 Universi ty of [facility] Medications Ordered Filled Start Stop Current Ordering Indication Dosage Frequency Signature Comments Components Source Medication Medication Date Date Medication? Clinician (SIG) Name Name Fenofibrate 2019-09- No Take by U wally (LOFIBRA) 10-02 mouth. ity of 160 mg 15:31: 00:00 [place] tablet 07 :00 Medical [place] Fenofibrate 2019-09 2020- No Take by U wally (LOFIBRA) 10-02 mouth. ity of 160 mg 15:31: 00:00 [place] tablet 07 :00 [facility] metformin 2019-09 Yes [id number] 500mg Take 1 Univers ER 500 mg 2-01 tablet by ity o f 24 hr 00:00: mouth [place] tablet 00 daily with Medical breakfast. Branch SYNTHROID 2019-09 Yes [id number] 125ug Take 1 Univers 125 mcg 2-01 tablet by ity of tablet 00:00: mouth [place] 00 every Medical morning. Branch Brand name only rosuvastati 2019-09 Yes [id number] 5mg Take 1 Univers n 5 mg 2-01 tablet by ity of tablet 00:00: mouth [place] 00 daily. Medical Branch metformin 2020-1 Yes [id number] 500mg Take 1 Univers ER 500 mg 2-01 tablet by ity o f 24 hr 00:00: mouth [place] tablet 00 daily with Medical breakfast. Branch SYNTHROID 2020-1 Yes [id number] 125ug Take 1 Univers 125 mcg 2-01 tablet by ity of tablet 00:00: mouth [place] 00 every Medical morning. Branch Brand name only rosuvastati 2020-1 Yes [id number] 5mg Take 1 Univers n 5 mg 2-01 tablet by ity of tablet 00:00: mouth [place] 00 daily. Medical Branch metformin 2019-1 Yes [id number] 500mg Take 1 Univers ER 500 mg 2-01 tablet by ity o f 24 hr 00:00: mouth [place] tablet 00 daily with Medical breakfast. Branch SYNTHROID 2019-1 Yes [id number] 125ug Take 1 Univers 125 mcg 2-01 tablet by ity of tablet 00:00: mouth [place] 00 every Medical morning. Branch Brand name only rosuvastati 2019-1 Yes [id number] 5mg Take 1 Univers n 5 mg 2-01 tablet by ity of tablet 00:00: mouth [place] 00 daily. Medical Branch metformin 2019-1 Yes [id number] 500mg Take 1 Univers ER 500 mg 2-01 tablet by ity o f 24 hr 00:00: mouth [place] tablet 00 daily with Medical breakfast. Branch SYNTHROID 2019-1 Yes [id number] 125ug Take 1 Univers 125 mcg 2-01 tablet by ity of tablet 00:00: mouth [place] 00 every Medical morning. Branch Brand name only rosuvastati 2020-1 Yes [id number] 5mg Take 1 Univers n 5 mg 2-01 tablet by ity of tablet 00:00: mouth [place] 00 daily. Medical Branch rosuvastati 2020-0 Yes [id number] 5mg Take 1 Univers n 5 mg 8-31 tablet by ity of tablet 00:00: mouth [place] 00 daily. Medical Branch metformin 2020-0 Yes [id number] 500mg Take 1 Univers ER 500 mg 8-31 tablet by ity o f 24 hr 00:00: mouth [place] tablet 00 daily with Medical breakfast. Branch levothyroxi 2020-0 Yes [id number] 125ug Take 1 Univers ne 8-31 tablet by ity of (SYNTHROID) 00:00: mouth [place] 125 mcg 00 every Medical tablet morning. Branch Brand name only rosuvastati 2020-0 Yes [id number] 5mg Take 1 Univers n 5 mg 8-31 tablet by ity of tablet 00:00: mouth [place] 00 daily. Medical Branch metformin 2019-0 Yes [id number] 500mg Take 1 Univers ER 500 mg 8-31 tablet by ity o f 24 hr 00:00: mouth [place] tablet 00 daily with Medical breakfast. Branch levothyroxi 2019-0 Yes [id number] 125ug Take 1 Univers ne 8-31 tablet by ity of (SYNTHROID) 00:00: mouth [place] 125 mcg 00 every Medical tablet morning. Branch Brand name only rosuvastati 2019-0 Yes [id number] 5mg Take 1 Univers n 5 mg 8-31 tablet by ity of tablet 00:00: mouth [place] 00 daily. Medical Branch metformin 2019-0 Yes [id number] 500mg Take 1 Univers ER 500 mg 8-31 tablet by ity o f 24 hr 00:00: mouth [place] tablet 00 daily with Medical breakfast. Branch levothyroxi 2019-0 Yes [id number] 125ug Take 1 Univers ne 8-31 tablet by ity of (SYNTHROID) 00:00: mouth [place] 125 mcg 00 every Medical tablet morning. Branch Brand name only rosuvastati 2019-0 2020- No [id number] 5mg Take 1 Univers n 5 mg 8-31 08-01 tablet by ity of tablet 00:00: 00:00 mouth [place] 00 :00 daily. Medical Branch metformin 2019-0 2020- No [id number] 500mg Take 1 Univers ER 500 mg 8-31 08- tablet by ity of 24 hr 00:00: 00:00 mouth [place] tablet 00 :00 daily with Medical breakfast. Branch levothyroxi 2019-0 2020- No [id number] 125ug Take 1 Univers ne 8-31 12- tablet by ity of (SYNTHROID) 00:00: 00:00 [place] 125 [place] 00 :00 every Medical tablet morning. Branch Brand name only rosuvastati 2019-0 2020- No [id number] 5mg Take 1 Univers n 5 mg 8-31 12- tablet by ity of tablet 00:00: 00:00 mouth [place] 00 :00 daily. Medical Branch metformin 2019-0 2020- No [id number] 500mg Take 1 Univers ER 500 mg 8-31 12- tablet by ity of 24 hr 00:00: 00:00 mouth [place] tablet 00 :00 daily with Medical breakfast. Branch levothyroxi 2020-0 2020- No [id number] 125ug Take 1 Univers ne 05-01 tablet by ity of (SYNTHROID) 00:00: 00:00 [place] 125 [place] 00 :00 every Medical tablet morning. Branch Brand name only SYNTHROID 2020-0 Yes [id number] 125ug Take 1 Univers 125 mcg 3-17 tablet by ity of tablet 00:00: mouth [place] 00 every Medical morning. Branch Brand name only metformin 2020-0 Yes [id number] 500mg Take 1 Univers ER 500 mg 3-17 tablet by ity o f 24 hr 00:00: mouth [place] tablet 00 daily with Medical breakfast. Branch rosuvastati 2020-0 Yes [id number] 5mg Take 1 Univers n 5 mg 3-17 tablet by ity of tablet 00:00: mouth [place] 00 daily. Medical Branch gabapentin 2020-0 Yes [id number] 100mg Take 1 Univers 100 mg 3-17 capsule by ity of capsule 00:00: mouth at [place] 00 bedtime. Medical Branch SYNTHROID 2020-0 Yes [id number] 125ug Take 1 Univers 125 mcg 3-17 tablet by ity of tablet 00:00: mouth [place] 00 every Medical morning. Branch Brand name only metformin 2020-0 Yes [id number] 500mg Take 1 Univers ER 500 mg 3-17 tablet by ity o f 24 hr 00:00: mouth [place] tablet 00 daily with Medical breakfast. Branch rosuvastati 2020-0 Yes [id number] 5mg Take 1 Univers n 5 mg 3-17 tablet by ity of tablet 00:00: mouth [place] 00 daily. Medical Branch gabapentin 2020-0 Yes [id number] 100mg Take 1 Univers 100 mg 3-17 capsule by ity of capsule 00:00: mouth at [place] 00 bedtime. Medical Branch SYNTHROID 2020-0 Yes [id number] 125ug Take 1 Univers 125 mcg 3-17 tablet by ity of tablet 00:00: mouth [place] 00 every Medical morning. Branch Brand name only metformin 2020-0 Yes [id number] 500mg Take 1 Univers ER 500 mg 3-17 tablet by ity o f 24 hr 00:00: mouth [place] tablet 00 daily with Medical breakfast. Branch rosuvastati 2020-0 Yes [id number] 5mg Take 1 Univers n 5 mg 3-17 tablet by ity of tablet 00:00: mouth [place] 00 daily. Medical Branch gabapentin 2020-0 Yes [id number] 100mg Take 1 Univers 100 mg 3-17 capsule by ity of capsule 00:00: mouth at [place] 00 bedtime. Medical Branch SYNTHROID 2020-0 Yes [id number] 125ug Take 1 Univers 125 mcg 3-17 tablet by ity of tablet 00:00: mouth [place] 00 every Medical morning. Branch Brand name only metformin 2020-0 Yes [id number] 500mg Take 1 Univers ER 500 mg 3-17 tablet by ity o f 24 hr 00:00: mouth [place] tablet 00 daily with Medical breakfast. Branch rosuvastati 2020-0 Yes [id number] 5mg Take 1 Univers n 5 mg 3-17 tablet by ity of tablet 00:00: mouth [place] 00 daily. Medical Branch gabapentin 2020-0 Yes [id number] 100mg Take 1 Univers 100 mg 3-17 capsule by ity of capsule 00:00: mouth at [place] 00 bedtime. Medical Branch gabapentin 2020-0 Yes [id number] 100mg Take 1 Univers 100 mg 3-17 capsule by ity of capsule 00:00: mouth at [place] [address] bedtime. Medical Branch gabapentin 2020-0 Yes [id number] 100mg Take 1 Univers 100 mg 3-17 capsule by ity of capsule 00:00: mouth at [place] bedtime. Medical Branch gabapentin 2020-0 Yes [id number] 100mg Take 1 Univers 100 mg 3-17 capsule by ity of capsule 00:00: mouth at [place] [address] bedtime. Medical Branch gabapentin 2020-0 Yes [id number] 100mg Take 1 Univers 100 mg 3-17 capsule by ity of capsule 00:00: mouth at [place] 00 bedtime. Medical Branch gabapentin 2020-0 Yes [id number] 100mg Take 1 Univers 100 mg 3-17 capsule by ity of capsule 00:00: mouth at [place] 00 bedtime. Medical Branch SYNTHROID 2020-0 Yes [id number] 125ug Take 1 Univers 125 mcg 3-17 tablet by ity of tablet 00:00: mouth [place] 00 every Medical morning. Branch Brand name only metformin 2020-0 Yes [id number] 500mg Take 1 Univers ER 500 mg 3-17 tablet by ity o f 24 hr 00:00: mouth [place] tablet 00 daily with Medical breakfast. Branch rosuvastati 2020-0 Yes [id number] 5mg Take 1 Univers n 5 mg 3-17 tablet by ity of tablet 00:00: mouth [place] 00 daily. Medical Branch gabapentin 2019-0 Yes [id number] 100mg Take 1 Univers 100 mg 3-17 capsule by ity of capsule 00:00: mouth at [place] 00 bedtime. Medical Branch SYNTHROID 2019-0 Yes [id number] 125ug Take 1 Univers 125 mcg 3-17 tablet by ity of tablet 00:00: mouth [place] 00 every Medical morning. Branch Brand name only metformin 2019-0 Yes [id number] 500mg Take 1 Univers ER 500 mg 3-17 tablet by ity o f 24 hr 00:00: mouth [place] tablet 00 daily with Medical breakfast. Branch rosuvastati Yes [id number] 5mg Take 1 Univers n 5 mg 3-17 tablet by ity of tablet 00:00: mouth [place] 00 daily. Medical Branch gabapentin 2019-0 Yes [id number] 100mg Take 1 Univers 100 mg 3-17 capsule by ity of capsule 00:00: mouth at [place] 00 bedtime. Medical Branch gabapentin 2019-0 2020- No [id number] 100mg Take 1 Univers 100 mg 3-17 12-15 capsule by ity of capsule 00:00: 00:00 mouth at [place] 00 :00 bedtime. Medical Branch gabapentin 2019-0 2020- No [id number] 100mg Take 1 Univers 100 mg 3-17 12-15 capsule by ity of capsule 00:00: 00:00 mouth at [place] 00 :00 bedtime. Medical Branch SYNTHROID 2019-0 2020- No [id number] 125ug Take 1 Univers 125 mcg 3-17 08-31 tablet by ity of tablet 00:00: 00:00 mouth [place] 00 :00 every Medical morning. Branch Brand name only metformin 2019-0 2020- No [id number] 500mg Take 1 Univers ER 500 mg 3-17 08-31 tablet by ity of 24 hr 00:00: 00:00 mouth [place] tablet 00 :00 daily with Medical breakfast. Branch rosuvastati 2019- 2020- No [id number] 5mg Take 1 Univers n 5 mg 3-17 08-31 tablet by ity of tablet 00:00: 00:00 mouth [place] 00 :00 daily. Medical Branch SYNTHROID Yes [id number] 125ug Take 1 Univers 125 mcg 9-05 tablet by ity of tablet 00:00: mouth [place] 00 every Medical morning. Branch Brand name only SYNTHROID 2019-0 Yes [id number] 125ug Take 1 Univers 125 mcg 9-05 tablet by ity of tablet 00:00: mouth [place] 00 every Medical morning. Branch Brand name only SYNTHROID 2018-0 Yes [id number] 125ug Take 1 Univers 125 mcg 9-05 tablet by ity of tablet 00:00: mouth [place] 00 every Medical morning. Branch Brand name only SYNTHROID 2018-0 2020- No [id number] 125ug Take 1 Univers 125 mcg 9-05 03-17 tablet by ity of tablet 00:00: 00:00 mouth [place] 00 :00 every Medical morning. Branch Brand name only SYNTHROID 2018-0 2020- No [id number] 125ug Take 1 Univers 125 mcg 9-05 03-17 tablet by ity of tablet 00:00: 00:00 mouth [place] 00 :00 every Medical morning. Branch Brand name only Fenofibrate 0 Yes Take by Un [place] (LOFIBRA) 8-30 mouth. ity of 160 mg 18:50: [place] tablet 41 Medical Branch docosahexan 0 Yes Take by Un [place] oic 8-30 mouth. ity of acid/epa 18:50: [place] (FISH OIL 41 Medical ORAL) Branch Fenofibrate 0 Yes Take by Un [place] (LOFIBRA) 8-30 mouth. ity of 160 mg 18:50: [place] tablet 41 Medical Branch docosahexan 0 Yes Take by Un [place] oic 8-30 mouth. ity of acid/epa 18:50: [place] (FISH OIL 41 Medical ORAL) Branch Fenofibrate 0 Yes Take by Un [place] (LOFIBRA) 8-30 mouth. ity of 160 mg 18:50: [place] tablet 41 Medical Branch docosahexan 2018-0 Yes Take by Un [place] oic 8-30 mouth. ity of acid/epa 18:50: [place] (FISH OIL 41 Medical ORAL) Branch Fenofibrate 2018-0 Yes Take by Un [place] (LOFIBRA) 8-30 mouth. ity of 160 mg 18:50: [place] tablet 41 Medical Branch docosahexan 2019-0 Yes Take by Un [place] oic 8-30 mouth. ity of acid/epa 18:50: [place] (FISH OIL 41 Medical ORAL) Branch Fenofibrate 2019-0 Yes Take by Un [place] (LOFIBRA) 8-30 mouth. ity of 160 mg 18:50: [place] tablet 41 Medical Branch docosahexan 2019-0 Yes Take by Un [place] oic 8-30 mouth. ity of acid/epa 18:50: [place] (FISH OIL 41 Medical ORAL) Branch Fenofibrate 2018-0 Yes Take by Un [place] (LOFIBRA) 8-30 mouth. ity of 160 mg 18:50: [place] tablet 41 Medical Branch docosahexan 2018-0 Yes Take by Un [place] oic 8-30 mouth. ity of acid/epa 18:50: [place] (FISH OIL 41 Medical ORAL) Branch docosahexan 2018-0 Yes Take by Un [place] oic 8-30 mouth. ity of acid/epa 18:50: [place] (FISH OIL 41 Medical ORAL) Branch docosahexan 0 Yes Take by Un [place] oic 8-30 mouth. ity of acid/epa 18:50: [place] (FISH OIL 41 Medical ORAL) Branch docosahexan 0 Yes Take by Un [place] oic 8-30 mouth. ity of acid/epa 18:50: [place] (FISH OIL 41 Medical ORAL) Branch docosahexan 2018-0 Yes Take by Un [place] oic 8-30 mouth. ity of acid/epa 18:50: [place] (FISH OIL 41 Medical ORAL) Branch docosahexan 0 Yes Take by Un [place] oic 8-30 mouth. ity of acid/epa 18:50: [place] (FISH OIL 41 Medical ORAL) Branch Fenofibrate 2018-0 Yes Take by Un [place] (LOFIBRA) 8-30 mouth. ity of 160 mg 18:50: [place] tablet 41 Medical Branch docosahexan 2018-0 Yes Take by Un [place] oic 8-30 mouth. ity of acid/epa 18:50: [place] (FISH OIL 41 Medical ORAL) Branch Fenofibrate 2019-0 Yes Take by Un [place] (LOFIBRA) 8-30 mouth. ity of 160 mg 18:50: [place] tablet 41 Medical Branch docosahexan 2019-0 Yes Take by Un [place] oic 8-30 mouth. ity of acid/epa 18:50: [place] (FISH OIL 41 Medical ORAL) Branch Fenofibrate Yes Take by Un [place] (LOFIBRA) 8-30 mouth. ity of 160 mg 18:50: [place] tablet 41 Medical Branch docosahexan 0 Yes Take by Un [place] oic 8-30 mouth. ity of acid/epa 18:50: [place] (FISH OIL 41 Medical ORAL) Branch Fenofibrate Yes Take by Un [place] (LOFIBRA) 8-30 mouth. ity of 160 mg 18:50: [place] tablet 41 Medical Branch docosahexan Yes Take by Un [place] oic 8-30 mouth. ity of acid/epa 18:50: [place] (FISH OIL 41 Medical ORAL) Branch Fenofibrate Yes Take by Un [place] (LOFIBRA) 8-30 mouth. ity of 160 mg 18:50: [place] tablet 41 Medical Branch docosahexan Yes Take by Un [place] oic 8-30 mouth. ity of acid/epa 18:50: [place] (FISH OIL 41 Medical ORAL) Branch Fenofibrate Yes Take by Un [place] (LOFIBRA) 8-30 mouth. ity of 160 mg 18:50: [place] tablet 41 Medical Branch docosahexan Yes Take by Un [place] oic 8-30 mouth. ity of acid/epa 18:50: [place] (FISH OIL 41 Medical ORAL) Branch metformin Yes [id number] 500mg Take 1 Univers ER 500 mg 8-30 tablet by ity o f 24 hr 00:00: mouth [place] tablet 00 daily with Medical breakfast. Branch rosuvastati Yes [id number] 5mg Take 1 Univers n 5 mg 8-30 tablet by ity of tablet 00:00: mouth [place] 00 daily. Medical Branch metformin Yes [id number] 500mg Take 1 Univers ER 500 mg 8-30 tablet by ity o f 24 hr 00:00: mouth [place] tablet 00 daily with Medical breakfast. Branch rosuvastati Yes [id number] 5mg Take 1 Univers n 5 mg 8-30 tablet by ity of tablet 00:00: mouth [place] 00 daily. Medical Branch metformin Yes [id number] 500mg Take 1 Univers ER 500 mg 8-30 tablet by ity o f 24 hr 00:00: mouth [place] tablet 00 daily with Medical breakfast. Branch rosuvastati Yes [id number] 5mg Take 1 Univers n 5 mg 8-30 tablet by ity of tablet 00:00: mouth [place] 00 daily. Medical Branch metformin 2018- 2020- No [id number] 500mg Take 1 Univers ER 500 mg 8-30 -17 tablet by ity of 24 hr 00:00: 00:00 mouth [place] tablet 00 :00 daily with Medical breakfast. Branch rosuvastati 2018- 2020- No [id number] 5mg Take 1 Univers n 5 mg 8-30 -17 tablet by ity of tablet 00:00: 00:00 mouth [place] 00 :00 daily. Medical Branch metformin 2018- 2020- No [id number] 500mg Take 1 Univers ER 500 mg 8-30 -17 tablet by ity of 24 hr 00:00: 00:00 mouth [place] tablet 00 :00 daily with Medical breakfast. Branch rosuvastati 2018-2019- No [id number] 5mg Take 1 Univers n 5 mg 8-30 -17 tablet by ity of tablet 00:00: 00:00 mouth [place] 00 :00 daily. Medical Branch levothyroxi 2019- No [id number] 125ug Take 1 Univers ne 8- 09-05 tablet by ity of (SYNTHROID) 00:00: 00:00 [place] 125 mcg 00 :00 every Medical tablet morning. Branch Fenofibrate Yes Take by Un [place] (LOFIBRA) 5-07 mouth. ity of 160 mg 13:54: [place] tablet 08 Medical Branch docosahexan Yes Take by Un [place] oic 5-07 mouth. ity of acid/epa 13:54: [place] (FISH OIL 08 Medical ORAL) Branch nystatin 2018- Yes [id number] Apply to Univers 100,000 5-07 area(s) 2 ity of unit/gram 00:00: (two) [place] powder 00 times Medical daily. Branch nystatin-tr Yes [id number] Apply to Univers iamcinolone 5-07 area(s) 2 ity of cream 00:00: (two) [place] 00 times Medical daily. Branch nystatin 2019- Yes [id number] Apply to Univers 100,000 5-07 area(s) 2 ity of unit/gram 00:00: (two) [place] powder 00 times Medical daily. Branch nystatin-tr 2019-0 Yes [id number] Apply to Univers iamcinolone 5-07 area(s) 2 ity of cream 00:00: (two) [place] 00 times Medical daily. Branch nystatin 2019-0 Yes [id number] Apply to Univers 100,000 5-07 area(s) 2 ity of unit/gram 00:00: (two) [place] powder 00 times Medical daily. Branch nystatin-tr 2019-0 Yes [id number] Apply to Univers iamcinolone 5-07 area(s) 2 ity of cream 00:00: (two) [place] 00 times Medical daily. Branch nystatin 2019-0 Yes [id number] Apply to Univers 100,000 5-07 area(s) 2 ity of unit/gram 00:00: (two) [place] powder 00 times Medical daily. Branch nystatin-tr 2019-0 Yes [id number] Apply to Univers iamcinolone 5-07 area(s) 2 ity of cream 00:00: (two) [place] 00 times Medical daily. Branch nystatin 2019-0 Yes [id number] Apply to Univers 100,000 5-07 area(s) 2 ity of unit/gram 00:00: (two) [place] powder 00 times Medical daily. Branch nystatin-tr 2019-0 Yes [id number] Apply to Univers iamcinolone 5-07 area(s) 2 ity of cream 00:00: (two) [place] 00 times Medical daily. Branch nystatin 2019-0 Yes [id number] Apply to Univers 100,000 5-07 area(s) 2 ity of unit/gram 00:00: (two) [place] powder 00 times Medical daily. Branch nystatin-tr 2019-0 Yes [id number] Apply to Univers iamcinolone 5-07 area(s) 2 ity of cream 00:00: (two) [place] 00 times Medical daily. Branch nystatin 2019-0 Yes [id number] Apply to Univers 100,000 5-07 area(s) 2 ity of unit/gram 00:00: (two) [place] powder 00 times Medical daily. Branch nystatin-tr 2019-0 Yes [id number] Apply to Univers iamcinolone 5-07 area(s) 2 ity of cream 00:00: (two) [place] 00 times Medical daily. Branch nystatin 2019-0 Yes [id number] Apply to Univers 100,000 5-07 area(s) 2 ity of unit/gram 00:00: (two) [place] powder 00 times Medical daily. Branch nystatin-tr 2019-0 Yes [id number] Apply to Univers iamcinolone 5-07 area(s) 2 ity of cream 00:00: (two) [place] 00 times Medical daily. Branch nystatin 2019-0 Yes [id number] Apply to Univers 100,000 5-07 area(s) 2 ity of unit/gram 00:00: (two) [place] powder 00 times Medical daily. Branch nystatin 2019-0 Yes [id number] Apply to Univers 100,000 5-07 area(s) 2 ity of unit/gram 00:00: (two) [place] powder 00 times Medical daily. Branch nystatin-tr 2019-0 Yes [id number] Apply to Univers iamcinolone 5-07 area(s) 2 ity of cream 00:00: (two) [place] 00 times Medical daily. Branch nystatin-tr 2019-0 Yes [id number] Apply to Univers iamcinolone 5-07 area(s) 2 ity of cream 00:00: (two) [place] 00 times Medical daily. Branch nystatin 2019-0 Yes [id number] Apply to Univers 100,000 5-07 area(s) 2 ity of unit/gram 00:00: (two) [place] powder 00 times Medical daily. Branch nystatin-tr 2019-0 Yes [id number] Apply to Univers iamcinolone 5-07 area(s) 2 ity of cream 00:00: (two) [place] 00 times Medical daily. Branch nystatin 2019-0 Yes [id number] Apply to Univers 100,000 5-07 area(s) 2 ity of unit/gram 00:00: (two) [place] powder 00 times Medical daily. Branch nystatin-tr 2019-0 Yes [id number] Apply to Univers iamcinolone 5-07 area(s) 2 ity of cream 00:00: (two) [place] 00 times Medical daily. Branch nystatin 2019-0 Yes [id number] Apply to Univers 100,000 5-07 area(s) 2 ity of unit/gram 00:00: (two) [place] powder 00 times Medical daily. Branch nystatin-tr 2019-0 Yes [id number] Apply to Univers iamcinolone 5-07 area(s) 2 ity of cream 00:00: (two) [place] 00 times Medical daily. Branch nystatin 2019-0 Yes [id number] Apply to Univers 100,000 5-07 area(s) 2 ity of unit/gram 00:00: (two) [place] powder 00 times Medical daily. Branch nystatin-tr 2019-0 Yes [id number] Apply to Univers iamcinolone 5-07 area(s) 2 ity of cream 00:00: (two) [place] 00 times Medical daily. Branch nystatin 2019-0 Yes [id number] Apply to Univers 100,000 5-07 area(s) 2 ity of unit/gram 00:00: (two) [place] powder 00 times Medical daily. Branch nystatin-tr 2019-0 Yes [id number] Apply to Univers iamcinolone 5-07 area(s) 2 ity of cream 00:00: (two) [place] 00 times Medical daily. Branch nystatin 2019-0 Yes [id number] Apply to Univers 100,000 5-07 area(s) 2 ity of unit/gram 00:00: (two) [place] powder 00 times Medical daily. Branch nystatin-tr 2019-0 Yes [id number] Apply to Univers iamcinolone 5-07 area(s) 2 ity of cream 00:00: (two) [place] 00 times Medical daily. Branch nystatin 2019-0 Yes [id number] Apply to Univers 100,000 5-07 area(s) 2 ity of unit/gram 00:00: (two) [place] powder 00 times Medical daily. Branch nystatin-tr 2019-0 Yes [id number] Apply to Univers iamcinolone 5-07 area(s) 2 ity of cream 00:00: (two) [place] 00 times Medical daily. Branch nystatin 2019-0 Yes [id number] Apply to Univers 100,000 5-07 area(s) 2 ity of unit/gram 00:00: (two) [place] powder 00 times Medical daily. Branch nystatin-tr 2019-0 Yes [id number] Apply to Univers iamcinolone 5-07 area(s) 2 ity of cream 00:00: (two) [place] 00 times Medical daily. Branch rosuvastati 2019-0 Yes [id number] 5mg Take 1 Univers n 5 mg 2-06 tablet by ity of tablet 00:00: mouth [place] 00 daily. Medical Branch metformin 2019-0 Yes [id number] 500mg Take 1 Univers ER 500 mg 2-06 tablet by ity o f 24 hr 00:00: mouth [place] tablet 00 daily with Medical breakfast. Branch SYNTHROID 2019-0 Yes 125ug Take 1 Unive [facility] 125 mcg 2-06 tablet by ity of tablet 00:00: mouth [place] 00 every Medical morning. Branch Vital Signs Vital Name Observation Time Observation Value Comments Source Systolic blood 2020-08-01 15:06:00 126 mm[Hg] [facility] [facility] 2020-08-01 15:06:00 81 mm[Hg] [facility] Heart rate 2020-08-01 15:06:00 80 /min Universi ty [facility] Body height 2020-08-01 15:06:00 152.4 cm Universi ty [facility] Body weight 2020-08-01 15:06:00 92.352 kg Universi ty [facility] BMI 2020-08-01 15:06:00 39.76 kg/m2 Universi ty [facility] Systolic blood 2020-08-01 15:06:00 126 mm[Hg] [facility] Diastolic blood 2020-08-01 15:06:00 81 mm[Hg] [facility] Heart rate 2020-08-01 15:06:00 80 /min Universi ty [facility] Body height 2020-08-01 15:06:00 152.4 cm Universi ty [facility] Body weight 2020-08-01 15:06:00 92.352 kg Universi ty [facility] BMI 2020-08-01 15:06:00 39.76 kg/m2 Universi ty [facility] Heart rate 2020-06-23 12:00:00 67 /min Universi ty [facility] Respiratory rate 2020-06-23 12:00:00 16 /[facility] in 2020-06-23 12:00:00 98 /min [facility] Arterial blood by [facility] Pulse oximetry Branch Systolic blood 2019-11-16 13:20:00 103 mm[Hg] [facility] Diastolic blood 2019-11-16 13:20:00 71 mm[Hg] [facility] Heart rate 2019-11-16 13:20:00 66 /min [facility] Respiratory rate 2019-11-16 13:20:00 16 /min [facility] Body height 2019-11-16 13:20:00 152.4 cm [facility] Body weight 2019-11-16 13:20:00 90.175 kg [facility] BMI 2019-11-16 13:20:00 38.83 kg/m2 [facility] Procedures Procedure Date / Time Performing Clinician Source Performed EXTERNAL PROVIDER RECORDS 2020-08-14 06:01:00 Doctor Nacho, [facility] [place] [facility] AGREEMENTS AUTHORIZATIONS 2019-11-16 05:01:00 Doctor Nacho, [facility] AND IRREVOCABLE [place] [facility] [place] ASSIGNMENTS (FORM 2000) POCT HEMOGLOBIN A1C TEST 2019-11-16 00:00:00 Sharona No [facility] NO SHOW OR MISSED 2019-04-30 18:30:29 Doctor Nacho, [facility] APPOINTMENT POLICY [place] [facility] h ACKNOWLEDGEMENT Encounters Start End Encounter Admission Attending Care Care Encounter Source Date/Time Date/Time Type Type Clinicians Facility Department ID 2021-04-03 2021-04-03 Outpatient R [facility] [id number] Univers 10:00:00 10:00:00 [id number] [facility] 2021-01-30 2021-01-30 Outpatient R CEDRIC [facility] [id number] Univers 10:00:00 10:00:00 SHARONA [id number] [facility] 2021-01-30 2021-01-30 Outpatient R CEDRIC [facility] [id number] Univers 10:00:00 10:00:00 SHARONA [facility] 2020-11-07 2020-11-07 Patient Seven MECLAUDETTE [id number] 00:00:00 00:00:00 Outreach [facility] [id number] [facility] [id number] RONDA [id number] 2020-11-07 2020-11-07 Patient Seven MECLAUDETTE [id number] Univers 00:00:00 00:00:00 Outreach [place] PR[facility] [id number] i ty of [facility] [id number] [phone] Nj dical [address] 2020-08-14 2020-08-14 Orders Doctor TWYLA 1.2.840.114 [id number] Univers 00:00:00 00:00:00 Only Unassigned, CARO [id number] ity of [place] [facility] [id number] Krishna as [phone] [address] 2020-08-01 2020-08-01 [facility] 1.2.840.114 [id number] 09:04:12 09:46:11 Visit [facility] [id number] [place] [id number] Professio [phone] [address] 2020-08-01 2020-08-01 Office [facility] 1.2.840.114 [id number] Univers 09:04:12 09:46:11 Visit [facility] [id number] [id number] [phone] [facility] [address] [facility] 2020-08-01 2020-08-01 [facility] [id number] Univers 09:00:00 09:00:00 ALEJANDRALAMBSBURG ity [facility] 2020-08-01 2020-08-01 [facility] [id number] Univers 09:00:00 09:00:00 [facility] ity [facility] 2020-07-31 2020-07-31 Telephone Cedric [facility] [id number] Univers 00:00:00 00:00:00 [facility] [id number] [id number] [phone] [facility] [address] [facility] 2020-06-23 2020-06-23 Laboratory Lab, Adc Fam Pob I [facility] 1.2. 840.114 [id number] Univers 09:52:26 10:12:26 Only Anene, [facility] [id number] ity of [place] [id number] Krishna as Professio [phone] [address] Office [address] 2020-06-23 2020-06-23 Outpatient R [facility] [id number] Univers 10:00:00 10:00:00 [id number] ity of [facility] 2020-06-23 2020-06-23 Outpatient R [facility] [id number] Univers 10:00:00 10:00:00 ity of [facility] 2020-06-23 2020-06-23 Letter Doctor TWYLA 1.2.840.114 [id number] Univers 00:00:00 00:00:00 (Out) Unassigned, CARO [id number] ity of [facility] [id number] Kirshna as [phone] [address] 2020-05-23 2020-05-23 Outpatient R CEDRIC, [facility] [id number] Univers 08:00:00 08:00:00 SHARONA [id number] ity [facility] 2020-05-23 2020-05-23 [facility] [id number] Univers 08:00:00 08:00:00 ALEJANDRAONG ity [facility] 2020-05-01 2020-05-01 [facility] 1.2.840.114 [id number] Univers 00:00:00 00:00:00 Sharona [place] [id number] [id number] [phone] [address] 2019-12-13 2019-12-13 [facility] [id number] Univers 00:00:00 00:00:00 Alejandraong [place] [id number] [id number] [phone] [address] 2019-12-02 2019-12-02 Telephone [facility] [id number] Univers 00:00:00 00:00:00 Wentong [place] [id number] [id number] [phone] [facility] [address] [facility] 2019-11-16 2019-11-16 [facility]one Classifier Tender 2, Adc Lab [facility] 1.2.840.114 [id number] Univers 09:27:19 09:42:19 Visit Sharona No [id number] [id number] [phone] [facility] [address] [facility] 2019-11-16 2019-11-16 Office Cedric [facility] 1.2.840.114 [id number] Univers 07:57:17 09:05:03 Visit Sharona Ewing [id number] [id number] [phone] [facility] [address] [facility] 2019-11-16 2019-11-16 Outpatient R CEDRIC [facility] [id number] Univers 08:00:00 08:00:00 SHARONA [id number] ity [facility] 2019-11-16 2019-11-16 Outpatient R CEDRIC [facility] [id number] Univers 08:00:00 08:00:00 SHARONA ity [facility] 2019-11-16 2019-11-16 Orders Doctor TWYLA 1.2.840.114 [id number] Univers 00:00:00 00:00:00 Only Unassigned, CARO [id number] ity of [place] [facility] [id number] Krishna as [phone] [address] 2019-11-12 2019-11-12 Refill Ky [facility] [id number] Univers 00:00:00 00:00:00 Faustino E[place] [id number] [id number] [phone] [facility] [address] [facility] 2019-05-06 2019-05-06 Telephone [place] [facility] 1.2.840.114 [id number] Univers 00:00:00 00:00:00 Faustino Seth Kaylin [id number] [id number] [phone] Nj dical [facility] [address] [facility] 2019-04-30 2019-04-30 Orders Doctor TWYLA 1.2.840.114 [id number] 00:00:00 00:00:00 Only Unassigned, CARO [id number] ity of [place] [facility] [id number] Krishna as [phone] [address] Results Test Description Test Time Test Comments Results Result Comments Source POCT HEMOGLOBIN A1C TEST 2019-11-16 13:25:00 Test Item Value Reference Range Interpretation Comme nts POCT HBA1C (test code = 4548-4) 6.0 % 4[facility]6 [facility] [id number] 13:25:00 Test Item Value Reference Range Interpretation Comments POCT HBA1C (test code = 4548-4) 6.0 % 4-6 [facility]
[2021-08-20 15:45] VITALS: BMI 41.3
[2021-08-20] MEDS ORDERED: NACHLORIDE 0.45% 1,000 ML IV SCH (16:00)
[2021-08-20] MEDS ORDERED: POLYETHYL GLY 3350 17 GM/DOSE PO PRN (16:00)
[2021-08-20] MEDS ORDERED: ONDANSETRON 4 MG/2 ML VIAL IV PRN (16:00)
[2021-08-20] MEDS ORDERED: DIPHENHYDRAMINE 25 MG TAB/CAP PO PRN (16:00)
[2021-08-20] MEDS ORDERED: ACETAMINOPHEN 325 MG TABLET PO PRN (16:00)
[2021-08-20] MEDS ORDERED: LOPERAMIDE HCL 2 MG CAPSULE PO PRN (16:00)
[2021-08-20] MEDS ORDERED: ONDANSETRON 4 MG (ODT) TAB PO PRN (16:00)
[2021-08-20] MEDS: ENOXAPARIN 40 MG/0.4 ML SQ SCH (16:34)
[2021-08-20] MEDS ORDERED: HYDROMORPHONE HCL 1 MG/ML INJ IV PRN (16:50)
[2021-08-20 17:22] LABS: Absolute Lymphocytes (CBC) 2.6 K/uL (0.7-4.9); Hematocrit 39.7 % (36.0-45.0); Lymphocytes % 32.4 % (15.3-44.8); MPV 9.6 fL (7.6-11.3); RBC Red Blood Cell Count 4.23 M/uL (3.86-4.86)
[2021-08-20 17:23] LABS: Urine Appearance TURBID (Clear); Urine Bilirubin NEGATIVE (Negative); Urine Blood NEGATIVE (Negative); Urine Color YELLOW (Yellow); Urine Glucose NEGATIVE (Negative); Urine Protein NEGATIVE (Negative)
[2021-08-20 17:34] LABS: Urine Microscopic Reflex ORDER UMIC
[2021-08-20 17:56] LABS: Urine Amorphous Sediment 4+ /HPF (NONE SEEN); Urine Bacteria <20 /HPF (<20); Urine RBC NONE SEEN /HPF (NONE SEEN)
[2021-08-20 18:13] LABS: ALT/SGPT 30 U/L (12-78); AST/SGOT 20 U/L (15-37); Albumin 3.4 g/dL (3.4-5.0); Alkaline Phosphatase 90 U/L (45-117); BUN Blood Urea Nitrogen 14 mg/dL (7-18); Bicarbonate 23 mmol/L (21-32); Bilirubin Direct < 0.1 mg/dL (0-0.2); Bilirubin Total 0.2 mg/dL (0.2-1.0); Glucose Level 124 mg/dL (74-106); Phosphorus 3.7 mg/dL (2.5-4.9); Potassium 3.7 mmol/L (3.5-5.1); Protein, Total 7.2 g/dL (6.4-8.2); Sodium Level 143 mmol/L (136-145)
[2021-08-20 18:14] LABS: Magnesium 2.2 mg/dL (1.8-2.4)
--- NOTE | 2021-08-20 20:27 | RAD REPORT ---
EXAM DESCRIPTION: CT - Abdomen Pelvis W Contrast - 08/20/2021 7:54 pm CLINICAL HISTORY: abdominal pain COMPARISON: Abdomen Pelvis W Contrast dated 12/25/2020 TECHNIQUE: Biphasic, helical CT imaging of the abdomen and pelvis was performed following 100 ml non -ionic IV contrast. No oral contrast administered. All CT scans are performed using dose optimization technique as appropriate and may include automated exposure control or mA/KV adjustment according to patient size. FINDINGS: No suspicious findings in the lung bases. Diffuse fatty infiltration of the liver present with no focal lesion. Spleen and pancreas show no zach picious findings. Cholecystectomy clips are present. No biliary tree dilatation. Symmetric renal function is seen with no hydronephrosis or suspicious renal mass. No pyelonephritis o r acute parenchymal process. No bladder abnormalities. No adrenal abnormalities. Uterus is absent. Ov jerman are absent or atrophic. No adnexal mass. No stomach or small bowel acute finding. Sigmoid diverticulosis present without diverticulitis. No ac tive GI process seen. No free air, free fluid or inflammatory stranding. No mass or bulky lymphaden opathy. Fat extends into each inguinal canal region. No congestion or edema in the lower pelvis or in guinal region. No suspicious bony findings. IMPRESSION: Moderate severity sigmoid diverticulosis without diverticulitis. No acute GI process. Fatty infiltration of the liver. No acute or RN UROLOGY process.
--- NOTE | 2021-08-20 20:28 | RAD REPORT ---
EXAM DESCRIPTION: RAD - Chest Pa And Lat (2 Views) - 08/20/2021 8:02 pm CLINICAL HISTORY: abdominal pain COMPARISON: April 27 TECHNIQUE: Frontal and lateral views of the chest were obtained. FINDINGS: The lungs are clear. Heart size is normal and central vasculature is within normal limit s. No pleural effusion or pneumothorax seen. No acute bony finding noted. No aortic abnormality. No significant change from comparison study. IMPRESSION: No acute cardiopulmonary process.
[2021-08-20] MEDS ORDERED: ATORVASTATIN CALCIUM 10 MG PO SCH (21:00)
[2021-08-20 21:06] LABS: Blood Morphology Comment NOT SEEN (NOT SEEN); Platelet Estimate ADEQ
[2021-08-20] MEDS ORDERED: METRONIDAZOLE 500mg IVPB 500 MG/100 ML BAG IV SCH (22:00)
[2021-08-20] MEDS ORDERED: CEFTRIAXONE 1,000 MG in NA CHLORIDE 0.9% 50 ML IVPB SCH (22:00)
[2021-08-20] MEDS: metroNIDAZOLE 500 MG TABLET PO SCH (23:00)
[2021-08-21 05:04] LABS: Hematocrit 41.7 % (36.0-45.0); Lymphocytes % 40.1 % (15.3-44.8); MPV 9.3 fL (7.6-11.3); RBC Red Blood Cell Count 4.43 M/uL (3.86-4.86)
[2021-08-21 05:16] LABS: Magnesium 2.4 mg/dL (1.8-2.4); Potassium 4.2 mmol/L (3.5-5.1)
[2021-08-21] MEDS ORDERED: LEVOTHYROXINE SODIUM 125 MCG PO SCH (06:00)
[2021-08-21] MEDS: metroNIDAZOLE 500 MG TABLET PO SCH (06:10)
[2021-08-21 08:17] VITALS: O2SAT 98
[2021-08-21] MEDS ORDERED: FENOFIBRATE 145 MG PO SCH (09:00)
[2021-08-21] MEDS: ENOXAPARIN 40 MG/0.4 ML SQ SCH (09:28)
[2021-08-21 09:31] VITALS: BP 120/76; TEMP 97.1
== END 2021-08-21 09:53 | disposition home or self-care (01) ==
LOC: INTOOBSV 15:01 → 2ND 15:01
PROVIDERS: ADMIT Internal Medicine; ATTEND Internal Medicine
DX: K57.92 Diverticulitis of intestine, part unspecified, without perforation or abscess without bleeding (principal); I10 Essential (primary) hypertension; K21.9 Gastro-esophageal reflux disease without esophagitis; E03.9 Hypothyroidism, unspecified; R73.03 Prediabetes; R05.3 Chronic cough; E78.2 Mixed hyperlipidemia; R53.83 Other fatigue; B97.4 Respiratory syncytial virus as the cause of diseases classified elsewhere; Z20.822 Contact with and (suspected) exposure to COVID-19; Z82.49 Family history of ischemic heart disease and other diseases of the circulatory system
CPT/HCPCS: 36415; 71046; 74177; 80048; 80076; 81003; 81015; 82306; 82607; 83735; 84100; 84443; 85025; 85610; 85730; 87086; 87088; G0378; G0379; J1170; J1650; Q9967; U0003

== ENCOUNTER 2022-01-01 20:13 | Emergency (ER) | payer OTHER ==
--- OUTSIDE RECORDS SUMMARY | 2022-01-01 20:17 | XMS REPORT | Continuity of Care Document ---
:1960 Author Organization [facility] t Address [address] [place] [address] [address] [place] [address] Care Team Providers Name Role Phone NO Attending Clinician Unavailable Jamie Amezcua DO Attending Clinician Doctor Unassigned, Name Attending Clinician Unavailable Cedric ANGEL Attending Clinician Lab, Fam Pob I Attending Clinician Unavailable Johan SWANP Attending Clinician 2, Lab Attending Clinician Unavailable [place] ANGEL, H Attending Clinician Payers Payer Name Policy Type Policy Number Effective Date Expiration Date Navneet URIBE CHOICE POS [id number] 2019 00:00:00 II Problems Condition Condition Condition Status Onset Resolution Last Treating Co mments Source Name Details Category Date Date Treatment Clinician Date Prediabete Prediabete Disease Active U nivers s s 05-01 ity of 00:00: [address] Branch Metabolic Metabolic Disease Active Uni vers syndrome X syndrome X 05-01 it y of 00:: [place] [facility] Obesity Obesity Disease Active Univers (BMI (BMI 05-01 ity of 30-39.9) 30-39.9) 00:00: [place] [facility] Dyslipidem Dyslipidem Disease Active U wally ia ia 8 ity of 00:00: [place] [facility] Branch Acanthosis Acanthosis Disease Active U wally nigricans nigricans 5-04 ity of 00:00: [place] [address] Medical Branch Postablati Postablati Disease Active U nivers ve ve 5-04 ity of hypothyro[place] 00 [place] Allergies, Adverse Reactions, Alerts Allergy Allergy Status Severity Reaction(s) Onset Inactive Treating Comm ents Source Name Type Date Date Clinician NO KNOWN Drug Active Univers ALLERGIE Class ity of S [facility] Social History Social Habit Start Date Stop Date Quantity Comments Source Exposure to Not sure [facility] SARS-CoV-2 [facility] (event) [place] Tobacco use and 2020-08-01 2020-08-01 Never used Universit y of exposure 00:00:00 00:00:00 [facility] Alcohol intake 2020-08-01 2020-08-01 Current drinker of Un iversity of 00:00:00 00:00:00 alcohol (finding) [facility] edical [place] Alcohol Comment 2019-01-05 2019-01-05 Occasional Universit y of 00:00:00 00:00:00 [facility] Sex Ass[birth year] At [birth year] Universit y of 00:00:00 00:00:00 [facility] Smoking Status Start Date Stop Date Source Former smoker 2020-08-01 00:00:00 2020-08-01 00:00:00 Universi ty of [facility] Medications Ordered Filled Start Stop Current Ordering Indication Dosage Frequency Signature Comments Components Source Medication Medication Date Date Medication? Clinician (SIG) Name Name Fenofibrate 2019-09- No Take by U wally (LOFIBRA) 10-02 mouth. ity of 160 mg 15:31: 00:00 [place] tablet 07 :00 Medical [place] Fenofibrate 2019-09 2020- No Take by U wally (LOFIBRA) 10-02 mouth. ity of 160 mg 15:31: 00:00 [place] tablet 07 :00 [facility] metformin 2019-09 Yes [id number] 500mg Take 1 Univers ER 500 mg 2-01 tablet by ity o f 24 hr 00:00: mouth [place] tablet 00 daily with Medical breakfast. Branch SYNTHROID 2019-09 Yes [id number] 125ug Take 1 Univers 125 mcg 2-01 tablet by ity of tablet 00:00: mouth [place] 00 every Medical morning. Branch Brand name only rosuvastati 2019-09 Yes [id number] 5mg Take 1 Univers n 5 mg 2-01 tablet by ity of tablet 00:00: mouth [place] 00 daily. Medical Branch metformin 2020-1 Yes [id number] 500mg Take 1 Univers ER 500 mg 2-01 tablet by ity o f 24 hr 00:00: mouth [place] tablet 00 daily with Medical breakfast. Branch SYNTHROID 2020-1 Yes [id number] 125ug Take 1 Univers 125 mcg 2-01 tablet by ity of tablet 00:00: mouth [place] 00 every Medical morning. Branch Brand name only rosuvastati 2020-1 Yes [id number] 5mg Take 1 Univers n 5 mg 2-01 tablet by ity of tablet 00:00: mouth [place] 00 daily. Medical Branch metformin 2019-1 Yes [id number] 500mg Take 1 Univers ER 500 mg 2-01 tablet by ity o f 24 hr 00:00: mouth [place] tablet 00 daily with Medical breakfast. Branch SYNTHROID 2019-1 Yes [id number] 125ug Take 1 Univers 125 mcg 2-01 tablet by ity of tablet 00:00: mouth [place] 00 every Medical morning. Branch Brand name only rosuvastati 2019-1 Yes [id number] 5mg Take 1 Univers n 5 mg 2-01 tablet by ity of tablet 00:00: mouth [place] 00 daily. Medical Branch metformin 2019-1 Yes [id number] 500mg Take 1 Univers ER 500 mg 2-01 tablet by ity o f 24 hr 00:00: mouth [place] tablet 00 daily with Medical breakfast. Branch SYNTHROID 2019-1 Yes [id number] 125ug Take 1 Univers 125 mcg 2-01 tablet by ity of tablet 00:00: mouth [place] 00 every Medical morning. Branch Brand name only rosuvastati 2020-1 Yes [id number] 5mg Take 1 Univers n 5 mg 2-01 tablet by ity of tablet 00:00: mouth [place] 00 daily. Medical Branch rosuvastati 2020-0 Yes [id number] 5mg Take 1 Univers n 5 mg 8-31 tablet by ity of tablet 00:00: mouth [place] 00 daily. Medical Branch metformin 2020-0 Yes [id number] 500mg Take 1 Univers ER 500 mg 8-31 tablet by ity o f 24 hr 00:00: mouth [place] tablet 00 daily with Medical breakfast. Branch levothyroxi 2020-0 Yes [id number] 125ug Take 1 Univers ne 8-31 tablet by ity of (SYNTHROID) 00:00: mouth [place] 125 mcg 00 every Medical tablet morning. Branch Brand name only rosuvastati 2020-0 Yes [id number] 5mg Take 1 Univers n 5 mg 8-31 tablet by ity of tablet 00:00: mouth [place] 00 daily. Medical Branch metformin 2019-0 Yes [id number] 500mg Take 1 Univers ER 500 mg 8-31 tablet by ity o f 24 hr 00:00: mouth [place] tablet 00 daily with Medical breakfast. Branch levothyroxi 2019-0 Yes [id number] 125ug Take 1 Univers ne 8-31 tablet by ity of (SYNTHROID) 00:00: mouth [place] 125 mcg 00 every Medical tablet morning. Branch Brand name only rosuvastati 2019-0 Yes [id number] 5mg Take 1 Univers n 5 mg 8-31 tablet by ity of tablet 00:00: mouth [place] 00 daily. Medical Branch metformin 2019-0 Yes [id number] 500mg Take 1 Univers ER 500 mg 8-31 tablet by ity o f 24 hr 00:00: mouth [place] tablet 00 daily with Medical breakfast. Branch levothyroxi 2019-0 Yes [id number] 125ug Take 1 Univers ne 8-31 tablet by ity of (SYNTHROID) 00:00: mouth [place] 125 mcg 00 every Medical tablet morning. Branch Brand name only rosuvastati 2019-0 2020- No [id number] 5mg Take 1 Univers n 5 mg 8-31 08-01 tablet by ity of tablet 00:00: 00:00 mouth [place] 00 :00 daily. Medical Branch metformin 2019-0 2020- No [id number] 500mg Take 1 Univers ER 500 mg 8-31 08- tablet by ity of 24 hr 00:00: 00:00 mouth [place] tablet 00 :00 daily with Medical breakfast. Branch levothyroxi 2019-0 2020- No [id number] 125ug Take 1 Univers ne 8-31 12- tablet by ity of (SYNTHROID) 00:00: 00:00 [place] 125 [place] 00 :00 every Medical tablet morning. Branch Brand name only rosuvastati 2019-0 2020- No [id number] 5mg Take 1 Univers n 5 mg 8-31 12- tablet by ity of tablet 00:00: 00:00 mouth [place] 00 :00 daily. Medical Branch metformin 2019-0 2020- No [id number] 500mg Take 1 Univers ER 500 mg 8-31 12- tablet by ity of 24 hr 00:00: 00:00 mouth [place] tablet 00 :00 daily with Medical breakfast. Branch levothyroxi 2020-0 2020- No [id number] 125ug Take 1 Univers ne 05-01 tablet by ity of (SYNTHROID) 00:00: 00:00 [place] 125 [place] 00 :00 every Medical tablet morning. Branch Brand name only SYNTHROID 2020-0 Yes [id number] 125ug Take 1 Univers 125 mcg 3-17 tablet by ity of tablet 00:00: mouth [place] 00 every Medical morning. Branch Brand name only metformin 2020-0 Yes [id number] 500mg Take 1 Univers ER 500 mg 3-17 tablet by ity o f 24 hr 00:00: mouth [place] tablet 00 daily with Medical breakfast. Branch rosuvastati 2020-0 Yes [id number] 5mg Take 1 Univers n 5 mg 3-17 tablet by ity of tablet 00:00: mouth [place] 00 daily. Medical Branch gabapentin 2020-0 Yes [id number] 100mg Take 1 Univers 100 mg 3-17 capsule by ity of capsule 00:00: mouth at [place] 00 bedtime. Medical Branch SYNTHROID 2020-0 Yes [id number] 125ug Take 1 Univers 125 mcg 3-17 tablet by ity of tablet 00:00: mouth [place] 00 every Medical morning. Branch Brand name only metformin 2020-0 Yes [id number] 500mg Take 1 Univers ER 500 mg 3-17 tablet by ity o f 24 hr 00:00: mouth [place] tablet 00 daily with Medical breakfast. Branch rosuvastati 2020-0 Yes [id number] 5mg Take 1 Univers n 5 mg 3-17 tablet by ity of tablet 00:00: mouth [place] 00 daily. Medical Branch gabapentin 2020-0 Yes [id number] 100mg Take 1 Univers 100 mg 3-17 capsule by ity of capsule 00:00: mouth at [place] 00 bedtime. Medical Branch SYNTHROID 2020-0 Yes [id number] 125ug Take 1 Univers 125 mcg 3-17 tablet by ity of tablet 00:00: mouth [place] 00 every Medical morning. Branch Brand name only metformin 2020-0 Yes [id number] 500mg Take 1 Univers ER 500 mg 3-17 tablet by ity o f 24 hr 00:00: mouth [place] tablet 00 daily with Medical breakfast. Branch rosuvastati 2020-0 Yes [id number] 5mg Take 1 Univers n 5 mg 3-17 tablet by ity of tablet 00:00: mouth [place] 00 daily. Medical Branch gabapentin 2020-0 Yes [id number] 100mg Take 1 Univers 100 mg 3-17 capsule by ity of capsule 00:00: mouth at [place] 00 bedtime. Medical Branch SYNTHROID 2020-0 Yes [id number] 125ug Take 1 Univers 125 mcg 3-17 tablet by ity of tablet 00:00: mouth [place] 00 every Medical morning. Branch Brand name only metformin 2020-0 Yes [id number] 500mg Take 1 Univers ER 500 mg 3-17 tablet by ity o f 24 hr 00:00: mouth [place] tablet 00 daily with Medical breakfast. Branch rosuvastati 2020-0 Yes [id number] 5mg Take 1 Univers n 5 mg 3-17 tablet by ity of tablet 00:00: mouth [place] 00 daily. Medical Branch gabapentin 2020-0 Yes [id number] 100mg Take 1 Univers 100 mg 3-17 capsule by ity of capsule 00:00: mouth at [place] 00 bedtime. Medical Branch gabapentin 2020-0 Yes [id number] 100mg Take 1 Univers 100 mg 3-17 capsule by ity of capsule 00:00: mouth at [place] [address] bedtime. Medical Branch gabapentin 2020-0 Yes [id number] 100mg Take 1 Univers 100 mg 3-17 capsule by ity of capsule 00:00: mouth at [place] bedtime. Medical Branch gabapentin 2020-0 Yes [id number] 100mg Take 1 Univers 100 mg 3-17 capsule by ity of capsule 00:00: mouth at [place] [address] bedtime. Medical Branch gabapentin 2020-0 Yes [id number] 100mg Take 1 Univers 100 mg 3-17 capsule by ity of capsule 00:00: mouth at [place] 00 bedtime. Medical Branch gabapentin 2020-0 Yes [id number] 100mg Take 1 Univers 100 mg 3-17 capsule by ity of capsule 00:00: mouth at [place] 00 bedtime. Medical Branch SYNTHROID 2020-0 Yes [id number] 125ug Take 1 Univers 125 mcg 3-17 tablet by ity of tablet 00:00: mouth [place] 00 every Medical morning. Branch Brand name only metformin 2020-0 Yes [id number] 500mg Take 1 Univers ER 500 mg 3-17 tablet by ity o f 24 hr 00:00: mouth [place] tablet 00 daily with Medical breakfast. Branch rosuvastati 2020-0 Yes [id number] 5mg Take 1 Univers n 5 mg 3-17 tablet by ity of tablet 00:00: mouth [place] 00 daily. Medical Branch gabapentin 2019-0 Yes [id number] 100mg Take 1 Univers 100 mg 3-17 capsule by ity of capsule 00:00: mouth at [place] 00 bedtime. Medical Branch SYNTHROID 2019-0 Yes [id number] 125ug Take 1 Univers 125 mcg 3-17 tablet by ity of tablet 00:00: mouth [place] 00 every Medical morning. Branch Brand name only metformin 2019-0 Yes [id number] 500mg Take 1 Univers ER 500 mg 3-17 tablet by ity o f 24 hr 00:00: mouth [place] tablet 00 daily with Medical breakfast. Branch rosuvastati Yes [id number] 5mg Take 1 Univers n 5 mg 3-17 tablet by ity of tablet 00:00: mouth [place] 00 daily. Medical Branch gabapentin 2019-0 Yes [id number] 100mg Take 1 Univers 100 mg 3-17 capsule by ity of capsule 00:00: mouth at [place] 00 bedtime. Medical Branch gabapentin 2019-0 2020- No [id number] 100mg Take 1 Univers 100 mg 3-17 12-15 capsule by ity of capsule 00:00: 00:00 mouth at [place] 00 :00 bedtime. Medical Branch gabapentin 2019-0 2020- No [id number] 100mg Take 1 Univers 100 mg 3-17 12-15 capsule by ity of capsule 00:00: 00:00 mouth at [place] 00 :00 bedtime. Medical Branch SYNTHROID 2019-0 2020- No [id number] 125ug Take 1 Univers 125 mcg 3-17 08-31 tablet by ity of tablet 00:00: 00:00 mouth [place] 00 :00 every Medical morning. Branch Brand name only metformin 2019-0 2020- No [id number] 500mg Take 1 Univers ER 500 mg 3-17 08-31 tablet by ity of 24 hr 00:00: 00:00 mouth [place] tablet 00 :00 daily with Medical breakfast. Branch rosuvastati 2019- 2020- No [id number] 5mg Take 1 Univers n 5 mg 3-17 08-31 tablet by ity of tablet 00:00: 00:00 mouth [place] 00 :00 daily. Medical Branch SYNTHROID Yes [id number] 125ug Take 1 Univers 125 mcg 9-05 tablet by ity of tablet 00:00: mouth [place] 00 every Medical morning. Branch Brand name only SYNTHROID 2019-0 Yes [id number] 125ug Take 1 Univers 125 mcg 9-05 tablet by ity of tablet 00:00: mouth [place] 00 every Medical morning. Branch Brand name only SYNTHROID 2018-0 Yes [id number] 125ug Take 1 Univers 125 mcg 9-05 tablet by ity of tablet 00:00: mouth [place] 00 every Medical morning. Branch Brand name only SYNTHROID 2018-0 2020- No [id number] 125ug Take 1 Univers 125 mcg 9-05 03-17 tablet by ity of tablet 00:00: 00:00 mouth [place] 00 :00 every Medical morning. Branch Brand name only SYNTHROID 2018-0 2020- No [id number] 125ug Take 1 Univers 125 mcg 9-05 [...] OIL 41 Medical ORAL) Branch metformin Yes [id number] 500mg Take 1 Univers ER 500 mg 8-30 tablet by ity o f 24 hr 00:00: mouth [place] tablet 00 daily with Medical breakfast. Branch rosuvastati Yes [id number] 5mg Take 1 Univers n 5 mg 8-30 tablet by ity of tablet 00:00: mouth [place] 00 daily. Medical Branch metformin Yes [id number] 500mg Take 1 Univers ER 500 mg 8-30 tablet by ity o f 24 hr 00:00: mouth [place] tablet 00 daily with Medical breakfast. Branch rosuvastati Yes [id number] 5mg Take 1 Univers n 5 mg 8-30 tablet by ity of tablet 00:00: mouth [place] 00 daily. Medical Branch metformin Yes [id number] 500mg Take 1 Univers ER 500 mg 8-30 tablet by ity o f 24 hr 00:00: mouth [place] tablet 00 daily with Medical breakfast. Branch rosuvastati Yes [id number] 5mg Take 1 Univers n 5 mg 8-30 tablet by ity of tablet 00:00: mouth [place] 00 daily. Medical Branch metformin 2018- 2020- No [id number] 500mg Take 1 Univers ER 500 mg 8-30 -17 tablet by ity of 24 hr 00:00: 00:00 mouth [place] tablet 00 :00 daily with Medical breakfast. Branch rosuvastati 2018- 2020- No [id number] 5mg Take 1 Univers n 5 mg 8-30 -17 tablet by ity of tablet 00:00: 00:00 mouth [place] 00 :00 daily. Medical Branch metformin 2018- 2020- No [id number] 500mg Take 1 Univers ER 500 mg 8-30 -17 tablet by ity of 24 hr 00:00: 00:00 mouth [place] tablet 00 :00 daily with Medical breakfast. Branch rosuvastati 2018-2019- No [id number] 5mg Take 1 Univers n 5 mg 8-30 -17 tablet by ity of tablet 00:00: 00:00 mouth [place] 00 :00 daily. Medical Branch levothyroxi 2019- No [id number] 125ug Take 1 Univers ne 8- 09-05 [...] 08 Medical ORAL) Branch nystatin 2018- Yes [id number] Apply to Univers 100,000 5-07 area(s) 2 ity of unit/gram 00:00: (two) [place] powder 00 times Medical daily. Branch nystatin-tr Yes [id number] Apply to Univers iamcinolone 5-07 area(s) 2 ity of cream 00:00: (two) [place] 00 times Medical daily. Branch nystatin 2019- Yes [id number] Apply to Univers 100,000 5-07 area(s) 2 ity of unit/gram 00:00: (two) [place] powder 00 times Medical daily. Branch nystatin-tr 2019-0 Yes [id number] Apply to Univers iamcinolone 5-07 area(s) 2 ity of cream 00:00: (two) [place] 00 times Medical daily. Branch nystatin 2019-0 Yes [id number] Apply to Univers 100,000 5-07 area(s) 2 ity of unit/gram 00:00: (two) [place] powder 00 times Medical daily. Branch nystatin-tr 2019-0 Yes [id number] Apply to Univers iamcinolone 5-07 area(s) 2 ity of cream 00:00: (two) [place] 00 times Medical daily. Branch nystatin 2019-0 Yes [id number] Apply to Univers 100,000 5-07 area(s) 2 ity of unit/gram 00:00: (two) [place] powder 00 times Medical daily. Branch nystatin-tr 2019-0 Yes [id number] Apply to Univers iamcinolone 5-07 area(s) 2 ity of cream 00:00: (two) [place] 00 times Medical daily. Branch nystatin 2019-0 Yes [id number] Apply to Univers 100,000 5-07 area(s) 2 ity of unit/gram 00:00: (two) [place] powder 00 times Medical daily. Branch nystatin-tr 2019-0 Yes [id number] Apply to Univers iamcinolone 5-07 area(s) 2 ity of cream 00:00: (two) [place] 00 times Medical daily. Branch nystatin 2019-0 Yes [id number] Apply to Univers 100,000 5-07 area(s) 2 ity of unit/gram 00:00: (two) [place] powder 00 times Medical daily. Branch nystatin-tr 2019-0 Yes [id number] Apply to Univers iamcinolone 5-07 area(s) 2 ity of cream 00:00: (two) [place] 00 times Medical daily. Branch nystatin 2019-0 Yes [id number] Apply to Univers 100,000 5-07 area(s) 2 ity of unit/gram 00:00: (two) [place] powder 00 times Medical daily. Branch nystatin-tr 2019-0 Yes [id number] Apply to Univers iamcinolone 5-07 area(s) 2 ity of cream 00:00: (two) [place] 00 times Medical daily. Branch nystatin 2019-0 Yes [id number] Apply to Univers 100,000 5-07 area(s) 2 ity of unit/gram 00:00: (two) [place] powder 00 times Medical daily. Branch nystatin-tr 2019-0 Yes [id number] Apply to Univers iamcinolone 5-07 area(s) 2 ity of cream 00:00: (two) [place] 00 times Medical daily. Branch nystatin 2019-0 Yes [id number] Apply to Univers 100,000 5-07 area(s) 2 ity of unit/gram 00:00: (two) [place] powder 00 times Medical daily. Branch nystatin 2019-0 Yes [id number] Apply to Univers 100,000 5-07 area(s) 2 ity of unit/gram 00:00: (two) [place] powder 00 times Medical daily. Branch nystatin-tr 2019-0 Yes [id number] Apply to Univers iamcinolone 5-07 area(s) 2 ity of cream 00:00: (two) [place] 00 times Medical daily. Branch nystatin-tr 2019-0 Yes [id number] Apply to Univers iamcinolone 5-07 area(s) 2 ity of cream 00:00: (two) [place] 00 times Medical daily. Branch nystatin 2019-0 Yes [id number] Apply to Univers 100,000 5-07 area(s) 2 ity of unit/gram 00:00: (two) [place] powder 00 times Medical daily. Branch nystatin-tr 2019-0 Yes [id number] Apply to Univers iamcinolone 5-07 area(s) 2 ity of cream 00:00: (two) [place] 00 times Medical daily. Branch nystatin 2019-0 Yes [id number] Apply to Univers 100,000 5-07 area(s) 2 ity of unit/gram 00:00: (two) [place] powder 00 times Medical daily. Branch nystatin-tr 2019-0 Yes [id number] Apply to Univers iamcinolone 5-07 area(s) 2 ity of cream 00:00: (two) [place] 00 times Medical daily. Branch nystatin 2019-0 Yes [id number] Apply to Univers 100,000 5-07 area(s) 2 ity of unit/gram 00:00: (two) [place] powder 00 times Medical daily. Branch nystatin-tr 2019-0 Yes [id number] Apply to Univers iamcinolone 5-07 area(s) 2 ity of cream 00:00: (two) [place] 00 times Medical daily. Branch nystatin 2019-0 Yes [id number] Apply to Univers 100,000 5-07 area(s) 2 ity of unit/gram 00:00: (two) [place] powder 00 times Medical daily. Branch nystatin-tr 2019-0 Yes [id number] Apply to Univers iamcinolone 5-07 area(s) 2 ity of cream 00:00: (two) [place] 00 times Medical daily. Branch nystatin 2019-0 Yes [id number] Apply to Univers 100,000 5-07 area(s) 2 ity of unit/gram 00:00: (two) [place] powder 00 times Medical daily. Branch nystatin-tr 2019-0 Yes [id number] Apply to Univers iamcinolone 5-07 area(s) 2 ity of cream 00:00: (two) [place] 00 times Medical daily. Branch nystatin 2019-0 Yes [id number] Apply to Univers 100,000 5-07 area(s) 2 ity of unit/gram 00:00: (two) [place] powder 00 times Medical daily. Branch nystatin-tr 2019-0 Yes [id number] Apply to Univers iamcinolone 5-07 area(s) 2 ity of cream 00:00: (two) [place] 00 times Medical daily. Branch nystatin 2019-0 Yes [id number] Apply to Univers 100,000 5-07 area(s) 2 ity of unit/gram 00:00: (two) [place] powder 00 times Medical daily. Branch nystatin-tr 2019-0 Yes [id number] Apply to Univers iamcinolone 5-07 area(s) 2 ity of cream 00:00: (two) [place] 00 times Medical daily. Branch nystatin 2019-0 Yes [id number] Apply to Univers 100,000 5-07 area(s) 2 ity of unit/gram 00:00: (two) [place] powder 00 times Medical daily. Branch nystatin-tr 2019-0 Yes [id number] Apply to Univers iamcinolone 5-07 area(s) 2 ity of cream 00:00: (two) [place] 00 times Medical daily. Branch rosuvastati 2019-0 Yes [id number] 5mg Take 1 Univers n 5 mg 2-06 tablet by ity of tablet 00:00: mouth [place] 00 daily. Medical Branch metformin 2019-0 Yes [id number] 500mg Take 1 Univers ER 500 mg [...] 2020-08-01 15:06:00 126 mm[Hg] Univer sity of [facility] Diastolic blood 2020-08-01 15:06:00 81 mm[Hg] Unive rsity of [facility] Heart rate 2020-08-01 15:06:00 80 /min Universi ty [facility] Body height 2020-08-01 15:06:00 152.4 cm Universi ty [facility] Body weight 2020-08-01 15:06:00 92.352 kg Universi ty [facility] BMI 2020-08-01 15:06:00 39.76 kg/m2 Universi ty [facility] Systolic blood 2020-08-01 15:06:00 126 mm[Hg] Univer sity of [place] Diastolic blood 2020-08-01 15:06:00 81 mm[Hg] Unive rsity of [facility] Heart rate 2020-08-01 15:06:00 80 /min Universi ty [facility] Body height 2020-08-01 15:06:00 152.4 cm Universi ty [facility] Body weight 2020-08-01 15:06:00 92.352 kg Universi ty [facility] BMI 2020-08-01 15:06:00 39.76 kg/m2 Universi ty [facility] Heart rate 2020-06-23 12:00:00 67 /min Universi ty [facility] Respiratory rate 2020-06-23 12:00:00 16 /[facility] in 2020-06-23 12:00:00 98 /min [facility] Arterial blood by [facility] Pulse oximetry Branch Systolic blood 2019-11-16 13:20:00 103 mm[Hg] Univer sity of [place] Diastolic blood 2019-11-16 13:20:00 71 mm[Hg] Unive rsity of [facility] Heart rate 2019-11-16 13:20:00 66 /min [facility] Respiratory rate 2019-11-16 13:20:00 16 /min [facility] Body height 2019-11-16 13:20:00 152.4 cm [facility] Body weight 2019-11-16 13:20:00 90.175 kg [facility] BMI 2019-11-16 13:20:00 38.83 kg/m2 [facility] Procedures Procedure Date / Time Performing Clinician Source Performed EXTERNAL PROVIDER RECORDS 2020-08-14 06:01:00 Doctor Nacho, [facility] [place] [facility] Branch AGREEMENTS AUTHORIZATIONS 2019-11-16 05:01:00 Doctor Nacho, [facility] AND IRREVOCABLE [place] Medical [place] ASSIGNMENTS (FORM 2000) POCT HEMOGLOBIN A1C TEST 2019-11-16 00:00:00 Sharona No [facility] NO SHOW OR MISSED 2019-04-30 18:30:29 Doctor Nacho, [facility] APPOINTMENT POLICY [place] Medical [facility] h ACKNOWLEDGEMENT Encounters Start End Encounter Admission Attending Care Care Encounter Source Date/Time Date/Time Type Type Clinicians Facility Department ID 2021-04-03 2021-04-03 Outpatient R [facility] [id number] Univers 10:00:00 10:00:00 [id number] [facility] 2021-01-30 2021-01-30 Outpatient R [facility] [id number] Univers 10:00:00 10:00:00 SHARONA [id number] [facility] 2021-01-30 2021-01-30 Outpatient R [facility] [id number] Univers 10:00:00 10:00:00 SHARONA [facility] 2020-11-07 2020-11-07 Patient Seven [facility] [id number] 00:00:00 00:00:00 Outreach [facility] [id number] [facility] [id number] RONDA [id number] 2020-11-07 2020-11-07 Patient Seven [facility] [id number] Univers 00:00:00 00:00:00 Outreach [place] [facility] [id number] i ty of [facility] [id number] [place] [id number] In dical 388 [place] 2020-08-14 2020-08-14 Orders Doctor TWYLA [id number] Univers 00:00:00 00:00:00 Only Unassigned, CARO [id number] ity of [place] [facility] [id number] Krishna as [id number] [address] 2020-08-01 2020-08-01 [facility] [id number] 09:04:12 09:46:11 Visit [facility] [id number] [place] [id number] Professio [id number] [address] 2020-08-01 2020-08-01 [facility] [id number] Univers 09:04:12 09:46:11 Visit [facility] [id number] i ty [place] [phone] [facility] [address] [facility] 2020-08-01 2020-08-01 Outpatient [facility] [id number] Univers 09:00:00 09:00:00 ALEJANDRAWARBRANCH ity [facility] 2020-08-01 2020-08-01 [facility] [id number] Univers 09:00:00 09:00:00 [facility] ity [facility] 2020-07-31 2020-07-31 Telephone Cedric [facility] [id number] Univers 00:00:00 00:00:00 [facility] [id number] i [place] [phone] [facility] 2020-06-23 2020-06-23 Laboratory Lab, Adc Fam Pob I [facility] 1.2. [id number] Univers 09:52:26 10:12:26 Only Anene, Marian [facility] [id number] ity of [place] 4.2.7.2.686 Krishna as Professio [phone] [address] Office Building [employer] 2020-06-23 2020-06-23 Outpatient R [facility] [id number] Univers 10:00:00 10:00:00 [id number] ity of [facility] 2020-06-23 2020-06-23 Outpatient R [facility] [id number] Univers 10:00:00 10:00:00 ity of [facility] 2020-06-23 2020-06-23 Letter Doctor TWYLA [id number] Univers 00:00:00 00:00:00 (Out) Unassigned, CARO 350.1.13.10 ity of [facility] 4.2.7.2.686 Krishna as [phone] [address] 2020-05-23 2020-05-23 Outpatient R CEDRIC, [facility] [id number] Univers 08:00:00 08:00:00 SHARONA [id number] ity [facility] 2020-05-23 2020-05-23 Outpatient R [facility] [id number] Univers 08:00:00 08:00:00 ALEJANDRAONG ity [facility] 2020-05-01 2020-05-01 [facility] [id number] Univers 00:00:00 00:00:00 Sharona [place] 350.1.13.10 i ty [place] [phone] [address] 2019-12-13 2019-12-13 [facility]phone [facility] [id number] Univers 00:00:00 00:00:00 Alejandraong [place] 350.1.13.10 i ty [place] [phone] [address] 2019-12-02 2019-12-02 Telephone [facility] [id number] Univers 00:00:00 00:00:00 Wentong [place] 350.1.13.10 i ty [place] [phone] [facility] 2019-11-16 2019-11-16 Crumb Packer 2, Adc Lab [facility] [id number] Univers 09:27:19 09:42:19 Visit Sharona No 350.1.13.10 ity of [place] [phone] [facility] 353 [facility] 2019-11-16 2019-11-16 Office Cedric [facility] [id number] Univers 07:57:17 09:05:03 Visit Sharona Ewing 350.1.13.10 i [place] [phone] [facility] 220 [facility] 2019-11-16 2019-11-16 Outpatient R CEDRIC [facility] [id number] Univers 08:00:00 08:00:00 SHARONA [id number] ity [facility] 2019-11-16 2019-11-16 Outpatient R CEDRIC [facility] [id number] Univers 08:00:00 08:00:00 SHARONA ity [facility] 2019-11-16 2019-11-16 Orders Doctor TWYLA 1.2.840.114 [id number] Univers 00:00:00 00:00:00 Only Unassigned, CARO 350.1.13.10 ity of [place] [facility] 4.2.7.2.686 Krishna as [phone] [address] 2019-11-12 2019-11-12 Refill Ky [facility] [id number] Univers 00:00:00 00:00:00 Faustino [place] 350.1.13.10 i ty [place] [phone] [facility] [address] [facility] 2019-05-06 2019-05-06 Telephone [place] [facility] 1.2.840.114 [id number] Univers 00:00:00 00:00:00 Faustino [place] 350.1.13.10 i ty [place] [phone] In dical nal [address] [facility] 2019-04-30 2019-04-30 Orders Doctor TWYLA 1.2.840.114 [id number] Univers 00:00:00 00:00:00 Only Unassigned, CARO 350.1.13.10 ity of [place] [facility] 4.2.7.2.686 Krishna as [phone] [facility] 00[address] [place] Results Test Description Test Time Test Comments Results Result Comments Source SARS-CoV-2 (COVID-19), RT-PCR/TMA 2021-09-11 09:36:57 Test Item Value Reference Range Interpretation Comme nts SARS-CoV-2 INTERPRETATION NEGATIVE SEE NOTE S ARS-CoV-2 RNA NOT (test code = 49366) DETECTED Negative results do not preclude SARS-C oV-2 infection and should notb e used as the sole basis for patient management deci sions. Negativeresults must be combined with clinical o bservations, patient history ,and epidemiological information. Optimum specime n types and timingfor peak viral levels during infectio ns caused by SARS-CoV-2 have notbeen determined. Col lection of multiple specim ens or types ofspecimens may be necessary to detect virus. I mproper specimencollect ion and handling, sequence variab ility under primers/probes, or organism present below t he limit of detection may l ead to falsenegative r esults. Positive and negative pr edictive values oftesting are h ighly dependent on prevalence. False negative testresults are more likely when prevalence is h igh. SOURCE (test code = 53542) NASOPHARYNGEAL Note: Methodology is Kamar Michele Real-Time RT-PCR. The expected r esult or reference range is NEGATIVE (Not Detected). For more information regarding COVID -19 testing to include clinica linformation, methodology det ail, intended use, FDA author ization andrecommended fact sheets for patients or hea lthcare providers, see [place] Announcement: S ARS-CoV-2 (COVID-19) by N AAT at URL below (note,fact shee ts are provided by method given in report:https:// www.MediaSite/c linicians/annie t-communications/ Alternatively, see downloadable PDF fact sheet at:https://www. MediaSite/COVID -19-RT-PCR UNLESS OTHERWISE INDIC ATED, ALL TESTING PERFORMED [facility], [facility]. [address] [place] [address] LABORATORY DIRE CTOR: AUDREY QUEVEDO M.D. CLIA NUMBER [id number] [place]. [id number] POCT HEMOGLOBIN A1C [id number] 13:25:00 Test Item Value Reference Range Interpretation Comments POCT HBA1C (test code = 4548-4) 6.0 % 4[facility]6 [facility] [id number] 13:25:00 Test Item Value Reference Range Interpretation Comments POCT HBA1C (test code = 4548-4) 6.0 % 4-6 [facility]
--- NOTE | 2022-01-01 21:22 | ER ---
Nurse's Notes [facility] Name: Elli Becker Age: 61 yrs Sex: Female : 1960 Arrival Date: 01/01/2022 Time: 20:16 Bed Waiting Private MD: Diagnosis: Presentation: 01/01 20:31 Chief complaint: Patient states: I feel like I have something poking my throat. Pt ld1 reporting sore throat, cough, trouble swallowing. SpO2 100%. Coronavirus screen: Client presents with at least one sign or symptom that may indicate coronavirus-19. Standard/surgical mask placed on the client. Ebola Screen: No symptoms or risks identified at this time. Initial Sepsis Screen: Does the patient meet any 2 criteria? No. Patient's initial sepsis screen is negative. Does the patient have a suspected source of infection? No. Patient's initial sepsis screen is negative. Risk Assessment: Do you want to hurt yourself or someone else? Patient reports no desire to harm self or others. Onset of symptoms was January 01, 2022. 20:31 Method Of Arrival: Ambulatory ld1 20:31 Acuity: BRIGIDO 4 ld1 Triage Assessment: 20:31 General: Appears in no apparent distress. comfortable, Behavior is calm, cooperative, ld1 appropriate for age. Pain: Denies pain. EENT: Throat is pink Reports difficulty swallowing since this evening 1900. Neuro: Sawant Agitation-Sedation Scale (RASS): 0 - Alert and Calm Level of Consciousness is awake, alert, obeys commands, Oriented to person, place, time, situation. Cardiovascular: Capillary refill < 3 seconds Patient's skin is warm and dry. Respiratory: Reports cough that is Airway is patent Respiratory effort is even, unlabored, Respiratory pattern is regular, symmetrical. Historical: - Allergies: 20:31 No Known Allergies; ld1 - Home Meds: 20:31 Synthroid 50 mcg Oral tab 1 tab once daily [Active]; ld1 - PMHx: 20:31 Diabetes - NIDDM; Diverticulitis; High Cholesterol; Hypothyroidism; polyps; ld1 - Immunization history:: Adult Immunizations up to date, Client reports receiving the 2nd dose of the Covid vaccine. - Social history:: Smoking status: Patient denies any tobacco usage or history of. Patient/guardian denies using alcohol. Vital Signs: 20:31 BP 114 / 57; Pulse 79; Resp 18; Temp 98.9(TE); Pulse Ox 100% on R/A; Weight 92.53 kg; ld1 Height 5 ft. 0 in. (152.40 cm); Pain 0/10; 20:31 Body Mass Index 39.84 (92.53 kg, 152.40 cm) ld1 ED Course: 20:16 Patient arrived in ED. ja2 20:31 Arm band placed on right wrist. ld1 20:33 Triage completed. ld1 20:36 Strep Sent. ld1 20:36 COVID-19/FLU A+B (Document "Date of Onset" if Symptomatic) Sent. ld1 Administered Medications: No medications were administered Outcome: 21:21 Patient left the ED. ld1 Signatures: Narcisa Fortune, RN RN ld1 Adina Sarmiento
[2022-01-01 21:30] LABS: SARS-COV-2 RT PCR NEGATIVE (NEGATIVE)
[2022-01-01 23:23] VITALS: BP 114/57; TEMP 98.9; O2SAT 100
== END 2022-01-01 21:21 | disposition left against medical advice (07) ==
LOC: ER 20:13
DX: Z53.21 Procedure and treatment not carried out due to patient leaving prior to being seen by health care provider (principal); Z20.822 Contact with and (suspected) exposure to COVID-19
CPT/HCPCS: 87070; 87081; 0240U; 99282

== ENCOUNTER 2024-08-20 08:42 | Day surgery (SDC) | payer OTHER ==
[2024-08-19 09:54] LABS: Absolute Eosinophils 0.1 K/uL (0-0.5); Absolute Lymphocytes (CBC) 2.8 K/uL (0.7-4.9); Absolute Monocytes 0.3 K/uL (0.1-1.3); Absolute Neutrophil 3.3 K/uL (1.8-8.0); Basophils % 0.5 % (0-1.3); Eosinophils % 1.6 % (0-4.4); Hematocrit 40.9 % (36.0-45.0); Hemoglobin 13.6 g/dL (12.0-15.0); Lymphocytes % 42.1 % (15.3-44.8); MCH 31.7 pg (27.0-35.0); MCHC 33.2 g/dL (32.0-36.0); MCV 95.5 fL (80-100); MPV 10.1 fL (7.6-11.3); Monocytes % 4.8 % (3.3-12.3); Platelets 255 thou/uL (152-406); RBC Red Blood Cell Count 4.29 M/uL (3.86-4.86)
[2024-08-19 09:58] LABS: PTT, Activated Partial Thromb 32.4 SECONDS (24.3-36.9); Protime INR 0.98
[2024-08-19 10:04] LABS: Anion Gap 8.9 mEq/L (5.0-15.0); Potassium 3.9 mEq/L (3.5-5.1)
--- NOTE | 2024-08-19 10:30 | RAD REPORT ---
EXAMINATION: TWO VIEW CHEST XR CLINICAL INDICATION: pre op for day surgery TECHNIQUE: 2 views of the chest was performed. COMPARISON: 08/20/2021 FINDINGS: The lungs are well inflated and clear. The heart is normal in size. No displaced fractures evident. IMPRESSION: No acute or significant abnormalities.
--- NOTE | 2024-08-19 11:26 | EKG ---
Test Date: 2024-08-19 Test Time: 10:41:45 Field Marketing Lead: ALLEN MEASUREMENT RESULTS: Intervals: Rate: 70 WY: 122 QRSD: 80 QT: 412 QTc: 444 [facility]: P: 33 WY: 122 QRS: -31 T: 62 INTERPRETIVE STATEMENTS: Normal sinus rhythm Left axis deviation Low voltage QRS Cannot rule out Anterior infarct, age undetermined Abnormal ECG Compared to ECG 12/25/2020 18:32:42 Left-axis deviation now present Sinus tachycardia no longer present Myocardial infarct finding still present Electronically Signed On 08-19-24 11:26:47 [employer]F [employer]USS MACHINE TENDER by Shashank Call
[2024-08-20] MEDS ORDERED: Ringers Lactate 1,000 ML IV ONE (08:53)
[2024-08-20] MEDS ORDERED: KETOROLAC 30 MG/ML INJ ONE (10:53)
[2024-08-20] MEDS ORDERED: propofoL 200 MG/20 ML VIAL IV ONE (10:53)
[2024-08-20] MEDS ORDERED: ONDANSETRON 4 MG/2 ML VIAL ONE (10:53)
[2024-08-20] MEDS ORDERED: dexAMETHasone 4 MG/ML VIAL ONE (10:53)
[2024-08-20] MEDS ORDERED: LIDOCAINE 2% MPF 5 ML VIAL ONE (10:53)
[2024-08-20] MEDS ORDERED: MIDAZOLAM HCL 2 MG/2 ML INJ ONE (10:53)
[2024-08-20] MEDS ORDERED: FENTANYL CITR 100 MCG/2 ML ONE (10:53)
[2024-08-20] MEDS: CEFAZOLIN SODIUM 1 GM/VIAL ONE (11:06)
[2024-08-20] MEDS ORDERED: NS 0.9% VIAL 10 ML ONE (11:15)
[2024-08-20] MEDS: BUPIVACAINE 0.25% PF 10 ML VIAL ONE (11:30)
--- NOTE | 2024-08-20 11:52 | P.BOP ---
Preoperative diagnosis: Left carpal tunnel syndrome Postoperative diagnosis: Same Primary procedure: Left open carpal tunnel release Qa Consultant: NONE,NONE Estimated blood loss: 2 cc Findings: See dictation Anesthesia: General Complications: None Implants: None Fluids & blood products: Per anesthesia record; tourniquet time 12 minutes at 250 mmHg Transferred to: Recovery Room Condition: Good
--- NOTE | 2024-08-20 11:54 | P.OP ---
Preoperative diagnosis: Left carpal tunnel syndrome Postoperative diagnosis: Same Primary procedure: Left open carpal tunnel release Anesthesia: General Estimated blood loss: 2 cc Specimen: None Findings: See dictation Operative Technique: Reason for Surgery: Elli had physical exam findings as well as EMG findings consistent with left carpal tunnel syndrome. I discussed with the patient at length risks and benefits associated with the procedure. She expressed understanding and elected proceed with operative treatment. Description of Procedure: After informed consent was obtained the patient was identified in the preoperative holding area. The left upper extremity was marked patient. Patient then brought back to the operating room transferred the operative table in supine fashion and placed under anesthesia. The left upper extremity was exsanguinated and the tourniquet was inflated to 250 mmHg. Approximately a 3 cm longitudinal incision was made just ulnar to the thenar crease. Dissection was then taken down to the palmar fascia which was identified. A [place] elevator was then placed just deep to the palmar fascia to protect the median nerve at all times. A 15 blade was then used to release the palmar fascia and transverse carpal ligament leaving the [place] elevator to protect the nerve at all times. Any remaining fascial bands were then released using a blunt tip Metzenbaum scissor. The tips were him superficially to protect the median nerve at all times. The wound was then irrigated thoroughly with normal saline. The skin was approximated using a 5-0 Prolene. Sterile dressings were applied and patient was awakened and transferred to PACU in stable condition. Postoperative plan: The patient will follow-up in 1 to 2 weeks for wound check and suture removal. She may begin to work on range of motion exercises at this time. Complications: None Implants: None Fluids & blood products: Per anesthesia record; tourniquet time 12 minutes at 250 mmHg Transferred to: Recovery Room Condition: Good
[2024-08-20] MEDS ORDERED: HYDROCODONE/APAP 7.5/325 MG TAB ONE (12:55)
[2024-08-20] MEDS: HYDROCODONE/APAP 7.5/325 MG TAB PO ONE (13:00)
[2024-08-20 14:08] VITALS: BP 124/67; TEMP 97.9; O2SAT 95
== END 2024-08-20 13:23 | disposition home or self-care (01) ==
LOC: OR 08:42
PROVIDERS: ATTEND Orthopaedic Surgery Sports Medicine
PROC: 01N50ZZ Release Median Nerve, Open Approach (ICD-10-PCS; principal; 2024-08-20 11:15)
DX: G56.02 Carpal tunnel syndrome, left upper limb (principal)
CPT/HCPCS: 93005; 85025; 80048; 36415; 85610; 85730; 71046; 64721; A4216; J2704; J1100; J2003; J2250; J3010; J2405; J7120; J0690